=== PATIENT | female | born 1955 | race Caucasian/White ===

== ENCOUNTER 2024-06-26 07:58 | Outpatient (AMB) | payer BC, SELFPAY ==
--- NOTE | 2024-06-26 08:01 | MHC.OFFVIS ---
Intake Visit Reasons: nocturia Intake Note: New patient presents today for initial visit for Nocturia Urology Medication:none Blood Thinner:none Antibiotic Allergies:none PVR:0ml Allergies Sulfa (Sulfonamide Antibiotics) Allergy (Mild, Verified 06/26/24 08:06) Agitated codeine sulfate Allergy (Mild, Uncoded 06/19/24 14:51) Agitated latex gloves Allergy (Mild, Uncoded 06/19/24 14:51) Agitated pencillin v potassium Allergy (Mild, Uncoded 06/19/24 14:51) Agitated Medication List - Last Reconciled 06/26/24 by Blas Lala MD bupropion HCl 75 mg PO BID fluticasone propionate 50 mcg/actuation 1 spray intranasal DAILY meloxicam 15 mg PO DAILY mirabegron ER (Myrbetriq) 50 mg PO DAILY HPI Comments Details: 06/26/24--68-year-old female presenting with nocturia. She describes an onset of nearly a year, with symptoms escalating to voiding up to five times a night, impacting her sleep significantly. Despite this frequent urination, she does not return to sleep and feels exhausted throughout the daytime. She has chronic lower back pain. There is no notable history of urinary tract infections recently., While she has a strong family history of diabetes, she has not been treated for it. During daytime hours, she voids frequently. Her caffeine consumption remains moderate at an average of two servings a day, discussed bladder irritants including caffeine may exacerbate her urinary symptoms. I discussed overactive bladder contributing to the patient's nocturia. We reviewed the possible influence of age-related estrogen changes on bladder function, causing bladder spasms. I recommended reducing caffeine intake to see if it helps alleviate symptoms. We agreed to conduct further diagnostic imaging, including an ultrasound of the kidneys and bladder, to rule out structural concerns. I also explained the potential benefits of pharmacological intervention with Mirabegron to help with bladder relaxation. The patient showed understanding and interest in pursuing treatment through medication, appreciating the importance of assessing the ultrasound results to offer a comprehensive diagnosis. Urinary Symptoms Review - Nocturia several times per night, with frequency up to five times on some occasions - Onset of urinary symptoms about a year ago - Daytime frequency of urination noted, occurring four to five times - No history of recent urinary tract infections - No associated dysuria reported - Moderate caffeine intake, consuming one to three cups per day PFSH Medical History Nocturia Pain in right knee Primary insomnia Hyperlipidemia, unspecified Major depressive disorder, recurrent, moderate Type 2 diabetes mellitus without complications Review of Systems Const All systems reviewed & are unremarkable except as noted in HPI and below Reports no additional complaints Eyes Reports no additional complaints ENT Reports no additional complaints Card Reports no additional complaints Resp Reports no additional complaints GI Reports no additional complaints Reports as per HPI Musc Reports no additional complaints Skin/Breast Reports system reviewed and no additional complaints, except as documented Neuro Reports no additional complaints Psych Reports no additional complaints Endo Reports no additional complaints Veto/Lymph Reports no additional complaints Aller/Immun Reports no additional complaints Physical Exam Const General: cooperative, healthy appearing and no acute distress Orientation/consciousness: patient oriented x3 HEENT Head: Yes normal to inspection, Yes normocephalic and Yes atraumatic Eyes Conjunctivae: conjunctivae normal Neck Neck: Yes normal visual inspection and Yes trachea midline Chest Chest palpation & inspection: normal inspection of the chest Resp Effort & Inspection: normal respiratory effort GI Inspection: Yes normal to inspection Neuro General: patient oriented x3 Psych Appearance: grossly normal Results AMB Urinalysis, Automated UA Leukoctes 70 Leni/uL Last Edit by Felisha Bermudez on 06/26/24 12:12 UA Nitrite Negative Last Edit by Felisha Bermudez on 06/26/24 12:12 UA Urobilinogen 0.2 mg/dL Last Edit by Felisha Bermudez on 06/26/24 12:12 UA Protein 30 mg/dL Last Edit by Felisha Bermudez on 06/26/24 12:12 UA pH 6.0 Last Edit by Felisha Bermudez on 06/26/24 12:12 UA Blood 10 Jan/uL Last Edit by Felisha Bermudez on 06/26/24 12:12 UA Specific [place] 1.025 Last Edit by Felisha Bermudez on 06/26/24 12:12 UA Ketone Negative Last Edit by Felisha Bermudez on 06/26/24 12:12 UA Bilirubin 1 mg/dL Last Edit by Felisha Bermudez on 06/26/24 12:12 UA Glucose 0 mg/dL Last Edit by Felisha Bermudez on 06/26/24 12:12 Assessment & Plan Assessment & Plan (1) Nocturia more than twice per night: Code(s): R35.1 - Nocturia Category: Medical (2) Urinary frequency: Code(s): R35.0 - Frequency of micturition Category: Medical Plan Plan - Begin taking Mirabegron 50 mg in the evening. - Reduce caffeine intake to one serving daily. - Complete an ultrasound of the kidneys and bladder as scheduled by [facility]. - Provide a urine sample before leaving the office today. Orders: Orders US retroperitoneal comp Today R35.0 - Frequency of micturition, R35.1 - Nocturia Urine Culture Today R35.0 - Frequency of micturition AMB Urinalysis Automated Today Z13.9 - Encounter for screening, unspecified Medications: New meloxicam 15 mg PO DAILY 60 tabs 0RF bupropion HCl 75 mg PO BID 60 tabs 0RF fluticasone propionate 50 mcg/actuation administer into each nostril 1 spray intranasal DAILY 50 grams 0RF mirabegron ER (Myrbetriq) 50 mg PO DAILY 30 tabs 3RF Patient Instructions: The patient had an opportunity to ask questions regarding treatment plan. The patient expressed understanding and agreement with the above treatment plan. The patient is aware they should contact our office by phone for worsening of their current condition or the appearance of new symptoms. Compliance is encouraged with any medications and followup testing that is ordered. It is a privilege to be allowed the opportunity to participate in the urologic care of your patient. If you have any questions or concerns regarding treatment for the above conditions please do not hesitate to contact me. The office telephone contact is [phone]. This note is constructed in part using voice recognition software. While every effort has been made to ensure accuracy labor union business representative errors may have been included. Yours sincerely, Blas Lala MD Scribe Plan - Not visible on output: Patient was informed and verbally consented to the use of an ambient scribe for clinic note documentation during this visit. Coding Level of Care Code New Pt Level 4 (56282) Diagnoses Nocturia more than twice per night R35.1 Urinary frequency R35.0
--- OUTSIDE RECORDS SUMMARY | 2024-06-26 08:02 | XMS_ITS | Encounter Summary ---
Author Organization [facility] Address [address] [place] [address] Care Team Providers Care Marketing Production Manager Name Role Phone Jim Thomas Primary Care Provider Encounter Details Date Type Department Care Team (Late st Contact Info) Description 05/15/2024 Lab Requisition [facility] - Main Lab [address] [facility] [place] [phone] [address] Waterman [address] [place] [phone] Urinary tract infection, site not specified; Hematuria, unspecified Social History Tobacco Use Types Packs/Day Years Used Date Smoking Tobacco: Never Assessed Comments Unknown Sex and Gender Information Value Date Recorded Sex Assigned at Not on file Legal Sex Female 6:02 PM EST Gender Identity Not on file Sexual Orientation Not on file documented as of this encounter Plan of Treatment Not on file documented as of this encounter Procedures Procedure Name Priority Date/Time Associated Diagnosis Comments URINALYSIS WITH REFLEX MICROSCOPIC Routine 05/15/2024 3:00 PM EST Urinary tract infection, site not specified Hematuria, unspecified URINALYSIS WITH REFLEX MICROSCOPIC Routine 05/15/2024 3:00 PM EST Urinary tract infection, site not specified Hematuria, unspecified CULTURE URINE Routine 05/15/2024 3:00 PM EST Urinary tract infection, site not specified Hematuria, unspecified documented in this encounter Results * (ABNORMAL) Urinalysis with reflex microscopic (05/15/2024 3:00 PM EST) Specific [place] Urine 1.025 1.003 - 1.030 LAB URINALYSIS - AUTOMATED METHOD 05/15/2024 9:49 PM [facility] pH, Urine 6.0 5.0 - 8.0 pH LAB URINALYSIS - AUTOMATED METHOD 05/15/2024 9:49 PM [facility] Leukocytes, Urine Small(A) Negative LAB URINALYSIS - AUTOMATED METHOD 05/15/2024 9:49 PM [facility] Nitrite, Urine Negative Negative LAB URINALYSIS - AUTOMATED METHOD 05/15/2024 9:49 PM [facility] Protein, Urine Negative <=Trace mg/dL LAB URINALYSIS - AUTOMATED METHOD 05/15/2024 9:49 PM [facility] Glucose, Urine Negative Negative mg/dL LAB URINALYSIS - AUTOMATED METHOD 05/15/2024 9:49 PM [facility] Ketones, Urine Negative Negative mg/dL LAB URINALYSIS - AUTOMATED METHOD 05/15/2024 9:49 PM [facility] Urobilinogen , Urine 0.2 0.2 - 1.0 mg/dL LAB URINALYSIS - AUTOMATED METHOD 05/15/2024 9:49 PM [facility] Bilirubin, Urine Negative Negative LAB URINALYSIS - AUTOMATED METHOD 05/15/2024 9:49 PM [facility] Blood, Urine Negative Negative LAB URINALYSIS - AUTOMATED METHOD 05/15/2024 9:49 PM [facility] RBC, Urine 1 0 - 4 /HPF 05/15/2024 9:49 PM [facility] WBC, Urine 3 0 - 4 /HPF 05/15/2024 9:49 PM [facility] Squamous Epithelial, Urine 50 0 - 60 /LPF 05/15/2024 9:49 PM EST [facility] Non-Squamous Epithelial, Urine 2-5 Transitional epithelial cells. /LPF 05/15/2024 9:49 PM [facility] Crystals, Urine Moderate Amorphous Urate crystals. /LPF 05/15/2024 9:49 PM EST [facility] Bacteria, Urine Negative Negative /HPF 05/15/2024 9:49 PM [facility] Hyaline Casts, Urine 1 0 - 3 /LPF 05/15/2024 9:49 PM [facility] Mucus, Urine Trace(A) None /HPF 05/15/2024 9:49 PM [facility] Urine Urine specimen obtained by clean catch procedure / Unknown 05/15/2024 3:00 PM EST 05/15/2024 7:24 PM EST Narrative [facility] - 05/15/2024 9:49 PM EST QNS to spin,urine sediment done on un-spun urine. [employer] LAB URINE ORDERABLES Final Resul t [facility] [address] [place] [address], [place] [phone] * Culture urine (05/15/2024 3:00 PM EST) Culture, Urine 10,000-49,000 CFU/mL Mixed urogenital esther, no uropathogens present. Suggest repeat specimen if clinically indicated. 05/16/2024 2:30 PM EST [facility] Urine Urine specimen obtained by clean catch procedure / Unknown 05/15/2024 3:00 PM EST 05/15/2024 7:24 PM EST [id number] LAB MICROBIOLOGY - GENERAL ORDER JENNIFER Final Result [facility] [address] [place] [address], documented in this encounter Visit Diagnoses Diagnosis Urinary tract infection, site not specified Hematuria, unspecified documented in this encounter Care Teams Marketing Production Manager Relationship Specialty Start Date End Date Jim Thomas DO [address] [place] [phone] PCP - General Internal Medicine 02/23/24 documented as of this encounter
--- OUTSIDE RECORDS SUMMARY | 2024-06-26 08:02 | XMS_ITS | Clinical Summary ---
Author Organization [facility] Address [address] [place] [address] Phone Care Team Providers Care Round Kiln Drawer Name Role Phone Gab Guerra DO Primary Care Provider [phone] Encounters Date Type Department Care Team Description 05/15/2024 Lab Requisition [facility] - Main Lab [address] [facility] [place] [address] Ed Waterman Urinary tract infection, site not specified; Hematuria, unspecified from Last 3 Months Social History Tobacco Use Types Packs/Day Years Used Date Smoking Tobacco: Never Assessed Comments Unknown Sex and Gender Information Value Date Recorded Sex Assigned at Not on file Legal Sex Female 6:02 PM EST Gender Identity Not on file Sexual Orientation Not on file Plan of Treatment Health Maintenance Due Date Last Done Comments DTaP,Tdap,and Td Vaccines (1 - Tdap) 1974 Pneumococcal Vaccine: 50+ Years (1 of 1 - PCV) 10/05/2003 Colorectal Cancer Screening: Colonoscopy 02/24/2022 Depression Screening 02/24/2022 Falls Risk Assessment 02/24/2022 Hepatitis C Screening 02/24/2022 Medicare Annual Wellness Visit 02/24/2022 Social Influencers of Health Screening 02/24/2022 Breast Cancer Screening 08/14/2025 08/15/19 24, 08/03/2022, 07/15/2021, Additional history exists Cholesterol Screening (Lipid Panel) 05/07/2029 05/07/2024 Osteoporosis Screening (Bone Density Screening) 03/23/2034 03/23/2024, 04/13/2018 Zoster Vaccines Completed 08/15/2020, 02/23/2020 RSV Immunization Adult Patients Completed 03/31/2023 Influenza Vaccine Completed 11/03/2023, , 02/22/2022, Additional history exists COVID-19 Vaccine Completed 11/25/2023, , 01/07/2022, Additional history exists HIB Vaccines Aged Out No longer eligi ble based on patient's age to complete this topic HPV Vaccines Aged Out No longer eligi ble based on patient's age to complete this topic Hepatitis A Vaccines Aged Out No long er eligible based on patient's age to complete this topic Hepatitis B Vaccines Aged Out No long er eligible based on patient's age to complete this topic IPV Vaccines Aged Out No longer eligi ble based on patient's age to complete this topic MMR Vaccines Aged Out No longer eligi ble based on patient's age to complete this topic Meningococcal ACWY Vaccine Aged Out N o longer eligible based on patient's age to complete this topic Meningococcal B Vaccine Aged Out No l onger eligible based on patient's age to complete this topic RSV Immunization Patients Under 20 months Aged Out No longer eligible based on patient's age to complete this topic Varicella Vaccines Aged Out No longer eligible based on patient's age to complete this topic Procedures Procedure Name Priority Date/Time Associated Diagnosis Comments URINALYSIS WITH REFLEX MICROSCOPIC Routine 05/15/2024 3:00 PM EST Urinary tract infection, site not specified Hematuria, unspecified URINALYSIS WITH REFLEX MICROSCOPIC Routine 05/15/2024 3:00 PM EST Urinary tract infection, site not specified Hematuria, unspecified CULTURE URINE Routine 05/15/2024 3:00 PM EST Urinary tract infection, site not specified Hematuria, unspecified URINALYSIS WITH REFLEX MICROSCOPIC Routine 05/07/2024 9:03 AM EST Macrocytosis HLD (hyperlipidemia) IGT (impaired glucose tolerance) Nocturia FOLATE Routine 05/07/2024 9:03 AM EST Macrocytosis HLD (hyperlipidemia) IGT (impaired glucose tolerance) Nocturia VITAMIN B12 Routine 05/07/2024 9:03 AM EST Macrocytosis HLD (hyperlipidemia) IGT (impaired glucose tolerance) Nocturia URINALYSIS WITH REFLEX MICROSCOPIC Routine 05/07/2024 9:03 AM EST Macrocytosis HLD (hyperlipidemia) IGT (impaired glucose tolerance) Nocturia LIPID PANEL WITH REFLEX TO DIRECT LDL Routine 05/07/2024 9:03 AM EST Macrocytosis HLD (hyperlipidemia) IGT (impaired glucose tolerance) Nocturia CULTURE URINE Routine 05/07/2024 9:03 AM EST Macrocytosis HLD (hyperlipidemia) IGT (impaired glucose tolerance) Nocturia BD BONE DENSITY DXA AXIAL SKELETON Routine 03/23/2024 8:21 AM EST Post-menopausal QUYEN SCREENING DIGITAL Routine 08/15/2023 8:44 AM EDT Encounter for screening mammogram for malignant neoplasm of breast from Last 3 Months or Most Recently Relevant to Health Maintenance Results * (ABNORMAL) Urinalysis with reflex microscopic (05/15/2024 3:00 PM EST) Only the most recent of2 resultswithin the time period is included. Specific [place] Urine 1.025 1.003 - 1.030 LAB URINALYSIS - AUTOMATED METHOD 05/15/2024 9:49 PM [facility] pH, Urine 6.0 5.0 - 8.0 pH LAB URINALYSIS - AUTOMATED METHOD 05/15/2024 9:49 PM [facility] Leukocytes, Urine Small(A) Negative LAB URINALYSIS - AUTOMATED METHOD 05/15/2024 9:49 PM [facility] Nitrite, Urine Negative Negative LAB URINALYSIS - AUTOMATED METHOD 05/15/2024 9:49 PM [facility] Protein, Urine Negative <=Trace mg/dL LAB URINALYSIS - AUTOMATED METHOD 05/15/2024 9:49 PM [facility] Glucose, Urine Negative Negative mg/dL LAB URINALYSIS - AUTOMATED METHOD 05/15/2024 9:49 PM [facility] Ketones, Urine Negative Negative mg/dL LAB URINALYSIS - AUTOMATED METHOD 05/15/2024 9:49 PM [facility] Urobilinogen , Urine 0.2 0.2 - 1.0 mg/dL LAB URINALYSIS - AUTOMATED METHOD 05/15/2024 9:49 PM [facility] Bilirubin, Urine Negative Negative LAB URINALYSIS - AUTOMATED METHOD 05/15/2024 9:49 PM [facility] Blood, Urine Negative Negative LAB URINALYSIS - AUTOMATED METHOD 05/15/2024 9:49 PM [facility] RBC, Urine 1 0 - 4 /HPF 05/15/2024 9:49 PM [facility] WBC, Urine 3 0 - 4 /HPF 05/15/2024 9:49 PM [facility] Squamous Epithelial, Urine 50 0 - 60 /LPF 05/15/2024 9:49 PM [facility] Non-Squamous Epithelial, Urine 2-5 Transitional epithelial cells. /LPF 05/15/2024 9:49 PM [facility] Crystals, Urine Moderate Amorphous Urate crystals. /LPF 05/15/2024 9:49 PM [facility] Bacteria, Urine Negative Negative /HPF 05/15/2024 9:49 PM [facility] Hyaline Casts, Urine 1 0 - 3 /LPF 05/15/2024 9:49 PM [facility] Mucus, Urine Trace(A) None /HPF 05/15/2024 9:49 PM [facility] Urine Urine specimen obtained by clean catch procedure / Unknown 05/15/2024 3:00 PM EST 05/15/2024 7:24 PM EST Narrative [facility] - 05/15/2024 9:49 PM EST QNS to spin,urine sediment done on un-spun urine. Ed [facility] LAB URINE ORDERABLES Final Resul t Performing Organization Address [facility]/ZIP Co de Phone Number [facility] [address] [place] [address], [place] [phone] * Culture urine (05/15/2024 3:00 PM EST) Only the most recent of2 resultswithin the time period is included. Pathologist [facility] Culture, Urine 10,000-49,000 CFU/mL Mixed urogenital esther, no uropathogens present. Suggest repeat specimen if clinically indicated. 05/16/2024 2:30 PM EST [facility] Urine Urine specimen obtained by clean catch procedure / Unknown 05/15/2024 3:00 PM EST 05/15/2024 7:24 PM EST [facility] LAB MICROBIOLOGY - GENERAL ORDER JENNIFER Final Result Performing Organization Address [facility] Co de Phone Number [facility] [address] [place] [address], [place] [phone] * (ABNORMAL) Lipid panel with reflex to direct LDL (05/07/2024 9:03 AM EST) Cholesterol 185 0 - 200 mg/dL LAB CHEMISTRY METHOD 05/07/2024 11:40 AM EST [facility] Triglycerides 90 0 - 150 mg/dL LAB CHEMISTRY METHOD 05/07/2024 11:40 AM [facility] HDL 49 >=40 mg/dL LAB CHEMISTRY METHOD 05/07/2024 11:40 AM [facility] LDL Calculated 118(H) 0 - 100 mg/dL LAB CHEMISTRY METHOD 05/07/2024 11:40 AM EST [facility] VLDL Cholesterol [place] 18 mg/dL LAB CHEMISTRY METHOD 05/07/2024 11:40 AM EST [facility] Non HDL Chol. (LDL+VLDL) 136 <145 mg/dL LAB CHEMISTRY METHOD 05/07/2024 11:40 AM EST [facility] Chol/HDL Ratio 3.8 0.0 - 4.4 LAB CHEMISTRY METHOD 05/07/2024 11:40 AM EST [facility] Blood Venous blood specimen / Unknown Venipuncture / Unknown 05/07/2024 9:03 AM EST 05/07/2024 9:03 AM EST Ed Waterman LAB BLOOD ORDERABLES Final Resul t Performing Organization Address City/[facility]/ZIP Co de Phone Number [facility] [address] [place] [address], * (ABNORMAL) Folate (05/07/2024 9:03 AM EST) Folate >20.0(H) 2.8 - 17.0 ng/ml LAB CHEMISTRY METHOD 05/07/2024 11:40 AM EST [facility] Blood Venous blood specimen / Unknown Venipuncture / Unknown 05/07/2024 9:03 AM EST 05/07/2024 9:03 AM EST Ed Waterman LAB BLOOD ORDERABLES Final Resul t [facility] [address] [place] [address], [place] [phone] * Vitamin B12 (05/07/2024 9:03 AM EST) Vitamin B-12 461 250 - 900 pcg/mL LAB CHEMISTRY METHOD 05/07/2024 11:40 AM EST [facility] Blood Venous blood specimen / Unknown Venipuncture / Unknown 05/07/2024 9:03 AM EST 05/07/2024 9:03 AM EST Ed Waterman LAB BLOOD ORDERABLES Final Resul t [facility] [address] [place] [address], [place] [phone] * BD Bone Density DXA Axial Skeleton (03/23/2024 8:21 AM EST) Anatomical Region Laterality Modality Wrist, Hip, L-spine Bone Densito metry 03/23/2024 8:48 AM EST Impressions 03/23/2024 8:53 AM EST 1. Osteopenia. ??There has been an increase of 3.1% in bone mineral density in the lumbar spine since the prior examination of 04/13/2018. ??There has been a decrease of 1.8% in bone mineral density in the right femur and a decrease of 0.8% in bone mineral density in the left femur. 2. FRAX analysis yields a 10-year probability of major osteoporotic fracture of 8.7% and a 10-year probability of hip fracture of 1.1%. Code 74186 -------- FINAL REPORT -------- Dictated By: Juan Eldridge Dictated Date: 03/23/2024 08:48 ET Assigned Physician: Juan Eldridge Reviewed and Electronically Signed By: Juan Eldridge Signed Date: 03/23/2024 08:53 ET Workstation ID: [id number] Transcribed By: Self Edit Transcribed Date: 03/23/2024 08:48 ET Narrative 03/23/2024 8:53 AM EST HISTORY: ??The patient is a 68-year-old postmenopausal female with clinical concern for metabolic bone disease. FINDINGS: ??Dual energy x-ray absorptiometry of the lumbar spine and femurs is performed. The mean bone mineral density at L1-L4 (with the exclusion of L2) is 1.150 gm/cm2 which is 98% of that of young normals and 109% of that of age matched controls. This yields a T-score of -0.2 and a Z-score of 0.8 and there is therefore no evidence of osteoporosis or osteopenia here. The mean bone mineral density of the femurs bilaterally is 0.916 gm/cm2 which is 91% of that of young normals and 104% of that of age matched controls. ??This yields a T-score of -0.7 and a Z-score of 0.3 and there is therefore no evidence of osteoporosis or osteopenia here. ??However, the T-score of left femoral neck is -1.4 which is diagnostic of osteopenia. Procedure Note Juan Eldridge MD - 03/23/2024 HISTORY: The patient is a 68-year-old postmenopausal female with clinicalconcern for metabolic bone disease. FINDINGS: Dual energy x-ray absorptiometry of the lumbar spine and femursis performed. The mean bone mineral density at L1-L4 (with the exclusionof L2) is 1.150 gm/cm2 which is 98% of that of young normals and 109% ofthat of age matched controls. This yields a T-score of -0.2 and a Z-scoreof 0.8 and there is therefore no evidence of osteoporosis or osteopeniahere. The mean bone mineral density of the femurs bilaterally is 0.916 gm/kg9hbfoc is 91% of that of young normals and 104% of that of age matchedcontrols. This yields a T-score of -0.7 and a Z-score of 0.3 and there istherefore no evidence of osteoporosis or osteopenia here. However, theT-score of left femoral neck is - 1.4 which is diagnostic of osteopenia. IMPRESSION: 1. Osteopenia. There has been an increase of 3.1% in bone mineral densityin the lumbar spine since the prior examination of 04/13/2018. There hasbeen a decrease of 1.8% in bone mineral density in the right femur and adecrease of 0.8% in bone mineral density in the left femur. 2. FRAX analysis yields a 10-year probability of major osteoporoticfracture of 8.7% and a 10-year probability of hip fracture of 1.1%. Code 49685 -------- FINAL REPORT -------- Dictated By: Juan Eldridge Dictated Date: 03/23/2024 08:48 ET Assigned Physician: Juan Eldridge Reviewed and Electronically Signed By: Juan Eldridge Signed Date: 03/23/2024 08:53 ET Workstation ID: [id number] Transcribed By: Self Edit Transcribed Date: 03/23/2024 08:48 ET us Gab Guerra DO IMG DXA PROCEDURES Final Resu lt * QUYEN SCREENING DIGITAL (08/15/2023 8:44 AM EDT) Anatomical Region Laterality Modality Mammography 08/15/2023 7:11 AM EDT Narrative 08/15/2023 8:44 AM EDT [facility] Diagnostic Imaging Department [address] [place], [place] [id number] Patient: ??ANN ALCARAZ ?/Age/Sex: 1955 - 67 - Unit#: ??[id number] ? Location/Status: ??SPDIMAM/REG CLI ? Mnemonic/Ordering Site: ??DIGSC/SPMAM Ordering Physician: ??GAB GUERRA MD [facility] Screening Digital - 08/15/23724 Report Status:Signed EXAM: [facility] Screening Digital EXAM DATE AND TIME: 08/15/2023 7:25 AM HISTORY: ??Annual screening COMPARISON: ??Multiple exams dating back to 2019 TECHNIQUE: Bilateral digital breast tomosynthesis was performed in the CC and MLO projections. Computer aided detection with fitaborateD [employer] 3D 3.1 was employed. TISSUE DENSITY: b. There are scattered areas of fibroglandular density. FINDINGS: No suspicious masses, grouped microcalcifications, or areas of architectural distortion are seen. The skin and vascularity are unremarkable. IMPRESSION: Stable mammographic appearance of the breasts. ??No evidence of malignancy is seen. A negative mammogram in the presence of a clinically suspicious palpable abnormality does not preclude the possibility of malignancy or alter the indications for biopsy. BI-RADS: ??Category 1: Negative RECOMMENDATION(S): 1: Routine screening mammogram BILATERAL in 1 year. 3341F, 7090F Dictating Physician: ??ALBERTO GRIFFIN MD Electronically Signed by: ??ALBERTO GRIFFIN MD Dic Date/Time: ??08/15/23842 Sign date/Time: ??08/15/23 0844 Procedure Note Alberto Griffin MD - 12/28/2023 [facility] Diagnostic Imaging Department [address] [place] [address] Patient: ANN ALCARAZO.B./Age/Sex: 1955 - 67 - F Unit#: [id number] Location/Status: [facility]/REG CLI Mnemonic/Ordering Site: [facility] Ordering Physician: GAB GUERRA MD [facility] Screening Digital - 08/15/23724 Report Status:Signed EXAM: [facility] Screening Digital EXAM DATE AND TIME: 08/15/2023 7:25 AM HISTORY: Annual screening COMPARISON: Multiple exams dating back to 2019 TECHNIQUE: Bilateral digital breast tomosynthesis was performed in the CCand MLO projections. Computer aided detection with [employer] 3D 3.1was employed. TISSUE DENSITY: b. There are scattered areas of fibroglandular density. FINDINGS: No suspicious masses, grouped microcalcifications, or areas ofarchitectural distortion are seen. The skin and vascularity are unremarkable. IMPRESSION: Stable mammographic appearance of the breasts. No evidence of malignancyis seen. A negative mammogram in the presence of a clinically suspicious palpable abnormality does not preclude the possibility of malignancy or alter the indications for biopsy. BI-RADS: Category 1: Negative RECOMMENDATION(S): 1: Routine screening mammogram BILATERAL in 1 year. 3341F, 7057F Dictating Physician: ALBERTO GRIFFIN MD Electronically Signed by: ALBERTO GRIFFIN MD Dic Date/Time: 08/15/2343 Sign date/Time: 08/15/23843 Gab Guerra DO IM BI PROCEDURES Final Resul t from Last 3 Months or Most Recently Relevant to Health Maintenance Insurance [employer] [place] MEDICARE ADVANTAGE Care Teams Round Kiln Drawer Relationship Specialty Start Date End Date Gab Guerra DO [address] [place] [phone] PCP - General Internal Medicine 02/23/24
== END 2024-06-26 08:48 | disposition home or self-care (01) ==
LOC: HO.HUSH 07:58
PROVIDERS: PCP Internal Medicine; Visit Provider Urology
DX: Z13.9 Encounter for screening, unspecified (principal)

== ENCOUNTER 2024-06-26 07:58 | Outpatient (REF) | payer BC, SELFPAY ==
--- OUTSIDE RECORDS SUMMARY | 2024-06-26 12:08 | XMS_ITS | Encounter Summary ---
Author Organization [facility] Address [address] [place] [address] Care Team Providers Care Driver Trainer Name Role Phone Jim Thomas Primary Care Provider [phone] Encounter Details Date Type Department Care Team (Late st Contact Info) Description 05/15/2024 Lab Requisition [facility] - Main Lab [address] [facility] [place] [phone] Ed Waterman [address] [place] [phone] Urinary tract infection, site not specified; [...] reflex microscopic (05/15/2024 3:00 PM EST) Specific [place] Urine 1.025 1.003 - 1.030 LAB URINALYSIS [...] - 60 /LPF 05/15/2024 9:49 PM EST [facility] Non-Squamous Epithelial, Urine 2-5 Transitional epithelial cells. /LPF 05/15/2024 9:49 PM [facility] Crystals, Urine Moderate Amorphous Urate crystals. /LPF 05/15/2024 9:49 PM EST [facility] Bacteria, Urine Negative Negative /HPF 05/15/2024 9:49 PM [facility] Hyaline Casts, Urine 1 0 - 3 /LPF 05/15/2024 9:49 PM [facility] Mucus, Urine Trace(A) None /HPF 05/15/2024 9:49 PM [facility] Urine Urine specimen obtained by clean catch procedure / Unknown 05/15/2024 3:00 PM EST 05/15/2024 7:24 PM EST Narrative [facility] - 05/15/2024 9:49 PM EST QNS to spin,urine sediment done on un-spun urine. [facility] LAB URINE ORDERABLES Final Resul t [facility] [address] [place] [address], [place] [phone] * Culture urine (05/15/2024 3:00 PM EST) Culture, Urine 10,000-49,000 CFU/mL Mixed urogenital esther, no uropathogens present. Suggest repeat specimen if clinically indicated. 05/16/2024 2:30 PM EST [facility] Urine Urine specimen obtained by clean catch procedure / Unknown 05/15/2024 3:00 PM EST 05/15/2024 7:24 PM EST [email or web address] LAB MICROBIOLOGY - GENERAL ORDER JENNIFER Final Result [facility] [address] [place] [address], documented in this encounter Visit Diagnoses Diagnosis Urinary tract infection, site not specified Hematuria, unspecified documented in this encounter Care Teams Driver Trainer Relationship Specialty Start Date End Date Jim Thomas DO [address] [place] [phone] PCP - General Internal Medicine 02/23/24 documented as of this encounter
--- OUTSIDE RECORDS SUMMARY | 2024-06-26 12:08 | XMS_ITS | Clinical Summary ---
Author Organization [facility] Address [address] [place] [address] Phone Care Team Providers Care Machine Leather Trimmer Name Role Phone Gab Guerra DO Primary Care Provider [phone] Encounters Date Type Department Care Team Description 05/15/2024 Lab Requisition [facility] - Main Lab [address] [facility] [place] [address] Ed Waterman Urinary tract infection, [...] resultswithin the time period is included. Specific [place] Urine 1.025 1.003 - 1.030 LAB URINALYSIS - AUTOMATED METHOD 05/15/2024 9:49 PM [facility] pH, Urine 6.0 5.0 - 8.0 pH LAB URINALYSIS - AUTOMATED METHOD 05/15/2024 9:49 PM [facility] Leukocytes, Urine Small(A) Negative LAB URINALYSIS - AUTOMATED METHOD 05/15/2024 9:49 PM [facility] Nitrite, Urine Negative Negative LAB URINALYSIS - AUTOMATED METHOD 05/15/2024 9:49 PM [facility] Protein, Urine Negative <=Trace mg/dL LAB URINALYSIS - AUTOMATED METHOD 05/15/2024 9:49 PM [facility] Glucose, Urine Negative Negative mg/dL LAB URINALYSIS - AUTOMATED METHOD 05/15/2024 9:49 PM [facility] Ketones, Urine Negative Negative mg/dL LAB URINALYSIS - AUTOMATED METHOD 05/15/2024 9:49 PM [facility] Urobilinogen , Urine 0.2 0.2 - 1.0 mg/dL LAB URINALYSIS - AUTOMATED METHOD 05/15/2024 9:49 PM [facility] Bilirubin, Urine Negative Negative LAB URINALYSIS - AUTOMATED METHOD 05/15/2024 9:49 PM [facility] Blood, Urine Negative Negative LAB URINALYSIS - AUTOMATED METHOD 05/15/2024 9:49 PM [facility] RBC, Urine 1 0 - 4 /HPF 05/15/2024 9:49 PM [facility] WBC, Urine 3 0 - 4 /HPF 05/15/2024 9:49 PM [facility] Squamous Epithelial, Urine 50 0 - 60 /LPF 05/15/2024 9:49 PM [facility] Non-Squamous Epithelial, Urine 2-5 Transitional epithelial cells. /LPF 05/15/2024 9:49 PM [facility] Crystals, Urine Moderate Amorphous Urate crystals. /LPF 05/15/2024 9:49 PM [facility] Bacteria, Urine Negative Negative /HPF 05/15/2024 9:49 PM [facility] Hyaline Casts, Urine 1 0 - 3 /LPF 05/15/2024 9:49 PM [facility] Mucus, Urine Trace(A) None /HPF 05/15/2024 9:49 PM [facility] Urine Urine specimen obtained by clean catch procedure / Unknown 05/15/2024 3:00 PM EST 05/15/2024 7:24 PM EST Narrative [facility] - 05/15/2024 9:49 PM EST QNS to spin,urine sediment done on un-spun urine. Ed [facility] LAB URINE ORDERABLES Final Resul t Performing Organization Address [facility]/ZIP Co de Phone Number [facility] [address] [place] [address], [place] [phone] * Culture urine (05/15/2024 3:00 PM EST) Only the most recent of2 resultswithin the time period is included. Pathologist [facility] Culture, Urine 10,000-49,000 CFU/mL Mixed urogenital esther, no uropathogens present. Suggest repeat specimen if clinically indicated. 05/16/2024 2:30 PM EST [facility] Urine Urine specimen obtained by clean catch procedure / Unknown 05/15/2024 3:00 PM EST 05/15/2024 7:24 PM EST [facility] LAB MICROBIOLOGY - GENERAL ORDER JENNIFER Final Result Performing Organization Address [facility] Co de Phone Number [facility] [address] [place] [address], [place] [phone] * (ABNORMAL) Lipid panel with reflex to direct LDL (05/07/2024 9:03 AM EST) Cholesterol 185 0 - 200 mg/dL LAB CHEMISTRY METHOD 05/07/2024 11:40 AM EST [facility] Triglycerides 90 0 - 150 mg/dL LAB CHEMISTRY METHOD 05/07/2024 11:40 AM [facility] HDL 49 >=40 mg/dL LAB CHEMISTRY METHOD 05/07/2024 11:40 AM [facility] LDL Calculated 118(H) 0 - 100 mg/dL LAB CHEMISTRY METHOD 05/07/2024 11:40 AM EST [facility] VLDL Cholesterol [place] 18 mg/dL LAB CHEMISTRY METHOD 05/07/2024 11:40 AM EST [facility] Non HDL Chol. (LDL+VLDL) 136 <145 mg/dL LAB CHEMISTRY METHOD 05/07/2024 11:40 AM EST [facility] Chol/HDL Ratio 3.8 0.0 - 4.4 LAB CHEMISTRY METHOD 05/07/2024 11:40 AM EST [facility] Blood Venous blood specimen / Unknown Venipuncture / Unknown 05/07/2024 9:03 AM EST 05/07/2024 9:03 AM EST Ed Waterman LAB BLOOD ORDERABLES Final Resul t Performing Organization Address [facility]/ZIP Co de Phone Number [facility] [address] [place] [address], * (ABNORMAL) Folate (05/07/2024 9:03 AM EST) Folate >20.0(H) 2.8 - 17.0 ng/ml LAB CHEMISTRY METHOD 05/07/2024 11:40 AM EST [facility] Blood Venous blood specimen / Unknown Venipuncture / Unknown 05/07/2024 9:03 AM EST 05/07/2024 9:03 AM EST Ed Waterman LAB BLOOD ORDERABLES Final Resul t [facility] [address] [place] [address], [place] [phone] * Vitamin B12 (05/07/2024 9:03 AM EST) Vitamin B-12 461 250 - 900 pcg/mL LAB CHEMISTRY METHOD 05/07/2024 11:40 AM EST [facility] Blood Venous blood specimen / Unknown Venipuncture / Unknown 05/07/2024 9:03 AM EST 05/07/2024 9:03 AM EST Ed Waterman LAB BLOOD ORDERABLES Final Resul t [facility] [address] [place] [address], [place] [phone] * BD Bone Density DXA Axial Skeleton [...] probability of hip fracture of 1.1%. Code 42299 -------- FINAL REPORT -------- Dictated By: Juan Eldridge Dictated Date: 03/23/2024 08:48 ET Assigned Physician: Juan Eldridge Reviewed and Electronically Signed By: Juan Eldridge Signed Date: 03/23/2024 08:53 ET Workstation ID: [id number] Transcribed By: Self Edit Transcribed Date: 03/23/2024 [...] density of the femurs bilaterally is 0.916 gm/ih8ndtbz is 91% of that of young normals [...] probability of hip fracture of 1.1%. Code 57759 -------- FINAL REPORT -------- Dictated By: Juan Eldridge Dictated Date: 03/23/2024 08:48 ET Assigned Physician: Juan Eldridge Reviewed and Electronically Signed By: Juna Eldridge Signed Date: 03/23/2024 08:53 ET Workstation ID: [id number] Transcribed By: Self Edit Transcribed Date: 03/23/2024 08:48 ET us Gab Guerra DO IMG DXA PROCEDURES Final Resu lt * QUYEN SCREENING DIGITAL (08/15/2023 8:44 AM EDT) Anatomical Region Laterality Modality Mammography 08/15/2023 7:11 AM EDT Narrative 08/15/2023 8:44 AM EDT [facility] Diagnostic Imaging Department [address] [place], [place] [id number] Patient: ??ANN ALCARAZ ?/Age/Sex: 1955 - 67 - Unit#: ??[id number] ? Location/Status: ??SPDIMAM/REG CLI ? Mnemonic/Ordering Site: ??DIGSC/SPMAM Ordering Physician: ??GAB GUERRA MD Quyen Screening Digital - 08/15/23724 Report Status:Signed EXAM: Quyen Screening Digital EXAM DATE AND TIME: 08/15/2023 7:25 AM HISTORY: ??Annual screening COMPARISON: ??Multiple exams dating back to 2019 TECHNIQUE: Bilateral digital breast tomosynthesis was performed in the CC and MLO projections. Computer aided detection with [employer] Kvantum 3D 3.1 was employed. TISSUE DENSITY: b. [...] screening mammogram BILATERAL in 1 year. 3341F, 7015F Dictating Physician: ??ALBERTO GRIFFIN MD Electronically Signed by: ??ALBERTO GRIFFIN MD Dic Date/Time: ??08/15/23842 Sign date/Time: ??08/15/23 0844 Procedure Note Alberto Griffin MD - 12/28/2023 [facility] Diagnostic Imaging Department [address] [place] [address] Patient: ANN ALCARAZO.B./Age/Sex: 1955 - 67 - F Unit#: [id number] Location/Status: [facility]/REG CLI Mnemonic/Ordering Site: [facility] Ordering Physician: GAB GUERRA MD [facility] Screening Digital - 08/15/23724 Report Status:Signed EXAM: [facility] Screening Digital EXAM DATE AND TIME: 08/15/2023 7:25 AM HISTORY: Annual screening COMPARISON: Multiple exams dating back to 2019 TECHNIQUE: Bilateral digital breast tomosynthesis was performed in the CCand MLO projections. Computer aided detection with [employer] Kvantum 3D 3.1was employed. TISSUE DENSITY: b. There [...] screening mammogram BILATERAL in 1 year. 3341F, 7030F Dictating Physician: ALBERTO GRIFFIN MD Electronically Signed by: ALBERTO GRIFFIN MD Dic Date/Time: 08/15/2343 Sign date/Time: 08/15/23843 Gab Guerra DO IM BI PROCEDURES Final Resul t from Last 3 Months or Most Recently Relevant to Health Maintenance Insurance [employer] - [place] MEDICARE ADVANTAGE Care Teams Machine Leather Trimmer Relationship Specialty Start Date End Date Gab Guerra DO [address] [place] [phone] PCP - General Internal Medicine 02/23/24
== END 2024-06-26 07:59 | disposition home or self-care (01) ==
LOC: HO.LNP 07:58
PROVIDERS: PCP Internal Medicine; Visit Provider Urology
DX: R35.0 Frequency of micturition (principal)
CPT/HCPCS: 81003; 87086

== ENCOUNTER 2024-08-21 11:30 | Outpatient (REF) | payer MEDICARE, SELFPAY ==
--- NOTE | ~2024-08-21 | US_ITS ---
CLINICAL HISTORY: R35.0 - Frequency of micturition US Renal Comparison: None Findings: Right kidney normal size and echotexture, 9.7 cm length. Left kidney normal size and echotexture, 9.9 cm length. No collecting system dilatation of either kidney. Normal color Doppler. Urinary bladder is unremarkable. Prevoid volume 448 mL. Postvoid volume 0 mL. Bilateral ureteral jets are visualized. IMPRESSION: 1. Normal kidneys. This document has been electronically signed by: Luis Eduardo Grey MD on 08/21/2024 16:43:04
--- OUTSIDE RECORDS SUMMARY | 2024-08-21 13:50 | XMS_ITS | Clinical Summary ---
Author Organization [facility] Address [address] [place] [address] Phone Care Team Providers Care Application Development Team Lead Name Role Phone Jim Guerra Primary Care Provider [phone] Social History Tobacco Use Types Packs/Day Years [...] 02/24/2022 Social Influencers of Health Screening 02/24/2022 COVID-19 Vaccine ( season) 2024 11/25/2023, 12/08/2022, 01/07/2022, Additional history exists Breast Cancer Screening 08/14/2025 08/15/19, 08/03/2022, 07/15/2021, Additional history exists Cholesterol Screening (Lipid Panel) 05/07/2029 05/07/2024 Osteoporosis Screening (Bone Density Screening) 03/23/2034 03/23/2024, 04/13/2018 Zoster Vaccines Completed 08/15/2020, 02/23/2020 RSV Immunization Adult Patients Completed 03/31/2023 Influenza Vaccine Completed 11/03/2023, , 02/22/2022, Additional history exists HIB Vaccines Aged Out [...] Procedure Name Priority Date/Time Associated Diagnosis Comments LIPID PANEL WITH REFLEX TO DIRECT LDL Routine 05/07/2024 9:03 AM EST Macrocytosis HLD (hyperlipidemia) IGT (impaired glucose tolerance) Nocturia BD BONE DENSITY DXA AXIAL SKELETON Routine 03/23/2024 8:21 AM EST Post-menopausal TARIQ SCREENING DIGITAL Routine 08/15/2023 8:44 AM EDT Encounter for screening mammogram for malignant neoplasm of breast from Last 3 Months or Most Recently Relevant to Health Maintenance Results * (ABNORMAL) Lipid panel with reflex to direct LDL (05/07/2024 9:03 AM EST) Cholesterol 185 0 - 200 mg/dL LAB CHEMISTRY METHOD 05/07/2024 11:40 AM EST [facility] Triglycerides 90 0 - 150 mg/dL LAB CHEMISTRY METHOD 05/07/2024 11:40 AM EST [facility] HDL 49 >=40 mg/dL LAB CHEMISTRY METHOD 05/07/2024 11:40 AM EST [facility] LDL Calculated 118(H) 0 - 100 mg/dL LAB CHEMISTRY METHOD 05/07/2024 11:40 AM EST [facility] VLDL Cholesterol [place] 18 mg/dL LAB CHEMISTRY METHOD 05/07/2024 11:40 AM EST [facility] Non HDL Chol. (LDL+VLDL) 136 <145 mg/dL LAB CHEMISTRY METHOD 05/07/2024 11:40 AM EST [facility] Chol/HDL Ratio 3.8 0.0 - 4.4 LAB CHEMISTRY METHOD 05/07/2024 11:40 AM EST [facility] Blood Venous blood specimen / Unknown Venipuncture / Unknown 05/07/2024 9:03 AM EST 05/07/2024 9:03 AM EST Ed Waterman LAB BLOOD ORDERABLES Final Resul t [facility] [address] [place] [address], * BD Bone Density DXA Axial Skeleton [...] probability of hip fracture of 1.1%. Code 07396 -------- FINAL REPORT -------- Dictated By: Juan Eldridge Dictated Date: 03/23/2024 08:48 ET Assigned Physician: Juan Eldridge Reviewed and Electronically Signed By: Juan Eldridge Signed Date: 03/23/2024 08:53 ET Workstation ID: [id number] Transcribed By: Self Edit Transcribed Date: 03/23/2024 [...] density of the femurs bilaterally is 0.916 gm/sp9urswg is 91% of that of young normals [...] probability of hip fracture of 1.1%. Code 15077 -------- FINAL REPORT -------- Dictated By: Juan Eldridge Dictated Date: 03/23/2024 08:48 ET Assigned Physician: Juan Eldridge Reviewed and Electronically Signed By: Juan Eldridge Signed Date: 03/23/2024 08:53 ET Workstation ID: [id number] Transcribed By: Self Edit Transcribed Date: 03/23/2024 08:48 ET us Jim Guerra DO IMG DXA PROCEDURES Final Resu lt * TARIQ SCREENING DIGITAL (08/15/2023 8:44 AM EDT) Anatomical Region Laterality Modality Mammography 08/15/2023 7:11 AM EDT Narrative 08/15/2023 8:44 AM EDT [facility] Diagnostic Imaging Department [address] [place] [address] Patient: ??ANN ALCARAZ ?/Age/Sex: 1955 - 67 - Unit#: ??[id number] ? Location/Status: ??SPDIMAM/REG CLI ? Mnemonic/Ordering Site: ??DIGSC/SPMAM Ordering Physician: ??JIM GUERRA MD [facility] Screening Digital - 08/15/23 - 724 Report Status:Signed EXAM: [facility] Screening Digital EXAM DATE AND TIME: 08/15/2023 7:25 AM HISTORY: ??Annual screening COMPARISON: ??Multiple exams dating back to 2019 TECHNIQUE: Bilateral digital breast tomosynthesis was performed in the CC and MLO projections. Computer aided detection with [employer] 3D 3.1 was employed. TISSUE DENSITY: b. [...] screening mammogram BILATERAL in 1 year. 3341F, 7025F Dictating Physician: ??ALBERTO GRIFFIN MD Electronically Signed by: ??ALBERTO GRIFFIN MD Dic Date/Time: ??08/15/23 0843 Sign date/Time: ??08/15/23 0844 Procedure Note Alberto Griffin MD - 12/28/2023 [facility] Diagnostic Imaging Department [address] [place] [address] Patient: CYDNEYALFONSOANN /Age/Sex: 1955 - 67 - F Unit#: [id number] Location/Status: SPDIMAM/REG CLI Mnemonic/Ordering Site: [facility] Ordering Physician: JIM GUERRA MD [facility] Screening Digital - 08/15/23724 Report Status:Signed EXAM: [facility] Screening Digital EXAM DATE AND TIME: 08/15/2023 7:25 AM HISTORY: Annual screening COMPARISON: Multiple exams dating back to 2019 TECHNIQUE: Bilateral digital breast tomosynthesis was performed in the CCand MLO projections. Computer aided detection with [employer] 3D 3.1was employed. TISSUE DENSITY: b. There [...] screening mammogram BILATERAL in 1 year. 3341F, 7025F Dictating Physician: ALBERTO GRIFFIN MD Electronically Signed by: ALBERTO GRIFFIN MD Dic Date/Time: 08/15/2343 Sign date/Time: 08/15/23843 Jim Guerra DO IMG BI PROCEDURES Final Resul t from Last 3 Months or Most Recently Relevant to Health Maintenance Insurance [employer] [place] Care Teams Application Development Team Lead Relationship Specialty Start Date End Date Jim Guerra DO [address] [place] [phone] PCP - General Internal Medicine 02/23/24
== END 2024-08-21 11:31 | disposition home or self-care (01) ==
LOC: HO.HMGCX 11:30
PROVIDERS: PCP Internal Medicine; Visit Provider Urology
DX: R35.0 Frequency of micturition (principal); R35.1 Nocturia
CPT/HCPCS: 76770

== ENCOUNTER → 2024-08-21 11:32 | Outpatient (BNV) | payer MEDICARE, SELFPAY | PROVIDERS: PCP Internal Medicine; Visit Provider Radiology Diagnostic Radiology | DX: R35.0 Frequency of micturition (principal) | CPT/HCPCS: 76770 ==

== ENCOUNTER 2024-09-06 11:42 | Outpatient (AMB) | payer BC, SELFPAY ==
--- NOTE | 2024-09-06 11:55 | A.OFFVIS_ITS ---
Intake Visit Reasons: 10w/US Intake Note: Patient presents today for 10w/US * Renal US 08/21 Urology Medication:none Blood Thinner:none Antibiotic Allergies:none PVR:0ml Allergies Sulfa (Sulfonamide Antibiotics) Allergy (Mild, Verified 09/06/24 11:58) Agitated codeine sulfate Allergy (Mild, Uncoded 06/19/24 14:51) Agitated latex gloves Allergy (Mild, Uncoded 06/19/24 14:51) Agitated pencillin v potassium Allergy (Mild, Uncoded 06/19/24 14:51) Agitated Medication List - Last Reconciled 09/06/24 by Blas Lala MD bupropion HCl 75 mg PO BID fluticasone propionate 50 mcg/actuation 1 spray intranasal DAILY meloxicam 15 mg PO DAILY solifenacin (Vesicare) 5 mg PO DAILY HPI Comments Details: 08/27/24 History of Present Illness - The patient is a 68-year-old female presenting with bacteriuria and urinary frequency. - Initially seen in June for bacteriuria and urinary frequency, prescribed Mirabegron 50 mg. - Lifestyle changes, including reducing caffeine intake, were advised. - Renal ultrasound showed normal kidneys. - Medication adherence issues due to cost; patient not taking prescribed medication. - Reduction in coffee intake led to symptom improvement; patient gets up two to three times at night. - Persistent microscopic hematuria noted; urine sample sent for cytology. Results - Renal ultrasound: Normal kidneys, unremarkable bladder. - Urine analysis: Trace blood present, persistent microscopic hematuria. Discussion Notes I discussed with the patient the normal results of the renal ultrasound and the presence of microscopic hematuria. We talked about the importance of further evaluation with a cystoscopy to rule out any bladder abnormalities. I explained the procedure, including the use of numbing jelly and antibiotics, and the potential findings such as bladder thickening or small growths. We also discussed the cost issues with the current medication and the possibility of prescribing Vesicare if it is more affordable. Follow-up was planned to reassess the condition and evaluate the effectiveness of the new medication. Plan - Prescribe Vesicare 5 mg daily due to cost issues with previous medication. - Schedule cystoscopy to evaluate persistent microscopic hematuria. - Send urine for cytology to check for cellular abnormalities. - Plan follow-up in eight weeks to assess Vesicare's effectiveness and urinary symptoms. 06/26/24--68-year-old female presenting with nocturia. She describes an onset of nearly a year, with symptoms escalating to voiding up to five times a night, impacting her sleep significantly. Despite this frequent urination, she does not return to sleep and feels exhausted throughout the daytime. She has chronic lower back pain. There is no notable history of urinary tract infections recently., While she has a strong family history of diabetes, she has not been treated for it. During daytime hours, she voids frequently. Her caffeine consumption remains moderate at an average of two servings a day, discussed bladder irritants including caffeine may exacerbate her urinary symptoms. I discussed overactive bladder contributing to the patient's nocturia. We reviewed the possible influence of age-related estrogen changes on bladder function, causing bladder spasms. I recommended reducing caffeine intake to see if it helps alleviate symptoms. We agreed to conduct further diagnostic imaging, including an ultrasound of the kidneys and bladder, to rule out structural concerns. I also explained the potential benefits of pharmacological intervention with Mirabegron to help with bladder relaxation. The patient showed understanding and interest in pursuing treatment through medication, appreciating the importance of assessing the ultrasound results to offer a comprehensive diagnosis. Urinary Symptoms Review - Nocturia several times per night, with frequency up to five times on some occasions - Onset of urinary symptoms about a year ago - Daytime frequency of urination noted, occurring four to five times - No history of recent urinary tract infections - No associated dysuria reported - Moderate caffeine intake, consuming one to three cups per day PFSH Medical History Nocturia Pain in right knee Primary insomnia Hyperlipidemia, unspecified Major depressive disorder, recurrent, moderate Type 2 diabetes mellitus without complications Review of Systems Const All systems reviewed & are unremarkable except as noted in HPI and below Reports no additional complaints Eyes Reports no additional complaints ENT Reports no additional complaints Card Reports no additional complaints Resp Reports no additional complaints GI Reports no additional complaints Reports as per HPI Musc Reports no additional complaints Skin/Breast Reports system reviewed and no additional complaints, except as documented Neuro Reports no additional complaints Psych Reports no additional complaints Endo Reports no additional complaints Veto/Lymph Reports no additional complaints Aller/Immun Reports no additional complaints Office Procedures Post Void Residual Post Residual Void Post Void Residual (PVR): 0 [id number]-[id number] Void Residual by ultrasound Results AMB Urinalysis, Automated UA Leukoctes 0 Leni/uL Last Edit by Felisha Calvillotiz on 09/06/24 13:39 UA Nitrite Negative Last Edit by Felisha Calvillotiz on 09/06/24 13:39 UA Urobilinogen 3.5 mg/dL Last Edit by Felisha Calvillotiz on 09/06/24 13:39 UA Protein 0 mg/dL Last Edit by Felisha Calvillotiz on 09/06/24 13:39 UA pH 6.0 Last Edit by Felisha Calvillotiz on 09/06/24 13:39 UA Blood 10 Jan/uL Last Edit by Felisha Calvillotiz on 09/06/24 13:39 UA Specific [place] 1.015 Last Edit by Felisha Calvillotiz on 09/06/24 13:39 UA Ketone Negative Last Edit by Felisha Calvillotiz on 09/06/24 13:39 UA Bilirubin 0 mg/dL Last Edit by Felisha Calvillotiz on 09/06/24 13:39 UA Glucose 0 mg/dL Last Edit by Felisha Calvillotiz on 09/06/24 13:39 Results Reviewed Results Reviewed: Date of Service: 08/21/24 CLINICAL HISTORY: R35.0 - Frequency of micturition US Renal Comparison: None Findings: Right kidney normal size and echotexture, 9.7 cm length. Left kidney normal size and echotexture, 9.9 cm length. No collecting system dilatation of either kidney. Normal color Doppler. Urinary bladder is unremarkable. Prevoid volume 448 mL. Postvoid volume 0 mL. Bilateral ureteral jets are visualized. IMPRESSION: 1. Normal kidneys. Assessment & Plan Assessment & Plan (1) Nocturia more than twice per night: Code(s): R35.1 - Nocturia Category: Medical (2) Urinary frequency: Code(s): R35.0 - Frequency of micturition Category: Medical (3) Microscopic hematuria: Code(s): R31.29 - Other microscopic hematuria Category: Medical Orders: Orders AMB Urinalysis Automated Today Z13.9 - Encounter for screening, unspecified AMB Post Void Residual by ultrasound Today R35.0 - Frequency of micturition Medications: New solifenacin (Vesicare) 5 mg PO DAILY 30 tabs 5RF Scribe Plan - Not visible on output: Patient was informed and verbally consented to the use of an ambient scribe for clinic note documentation during this visit. Coding Level of Care Code Est Pt Level 4 (95357) Diagnoses Nocturia more than twice per night R35.1 Urinary frequency R35.0 Microscopic hematuria R31.29 CPT Codes Post Residual Void - PVR CPT Code: 70161-[id number] Void Residual by ultrasound ([id number])
--- OUTSIDE RECORDS SUMMARY | 2024-09-06 14:06 | XMS_ITS | Clinical Summary ---
Author Organization [facility] Address [address] [place] [address] Phone Care Team Providers Care Wash Driller Name Role Phone Gab Guerra Primary Care Provider [phone] Social History Tobacco Use Types Packs/Day Years [...] LAB CHEMISTRY METHOD 05/07/2024 11:[address] [facility] Triglycerides 90 0 - 150 mg/dL LAB CHEMISTRY METHOD 05/07/2024 11:[address] [facility] HDL 49 >=40 mg/dL LAB CHEMISTRY METHOD 05/07/2024 11:[address] [facility] LDL Calculated 118(H) 0 - 100 mg/dL LAB CHEMISTRY METHOD 05/07/2024 11:[address] [facility] VLDL Cholesterol [place] 18 mg/dL LAB CHEMISTRY METHOD 05/07/2024 11:[address] [facility] Non HDL Chol. (LDL+VLDL) 136 <145 mg/dL LAB CHEMISTRY METHOD 05/07/2024 11:[address] [facility] Chol/HDL Ratio 3.8 0.0 - 4.4 LAB CHEMISTRY METHOD 05/07/2024 11:[address] [facility] Blood Venous blood specimen / Unknown Venipuncture / Unknown 05/07/2024 9:03 AM EST 05/07/2024 9:03 AM EST Ed Waterman LAB BLOOD ORDERABLES Final Resul t [facility] [address] [place] [address], * BD Bone Density DXA Axial Skeleton (03/23/2024 8:21 AM EST) Anatomical Region Laterality Modality Wrist, Hip, L-spine Bone Densito metry 03/23/2024 8:48 AM EST Impressions 03/23/2024 8:53 AM EST 1. Osteopenia. There has been an increase of 3.1% in bone mineral density in the lumbar spine since the prior examination of 04/13/2018. There has been a decrease of 1.8% in bone mineral density in the right femur and a decrease of 0.8% in bone mineral density in the left femur. 2. FRAX analysis yields a 10-year probability of major osteoporotic fracture of 8.7% and a 10-year probability of hip fracture of 1.1%. Code 38978 -------- FINAL REPORT -------- Dictated By: Juan Eldridge Dictated Date: 03/23/2024 08:48 ET Assigned Physician: Juan Eldridge Reviewed and Electronically Signed By: Juan Eldridge Signed Date: 03/23/2024 08:53 ET Workstation ID: [id number] Transcribed By: Self Edit Transcribed Date: 03/23/2024 08:48 ET Narrative 03/23/2024 8:53 AM EST HISTORY: The patient is a 68-year-old postmenopausal female with clinical concern for metabolic bone disease. FINDINGS: Dual energy [...] 104% of that of age matched controls. This yields a T-score of -0.7 and a Z-score of 0.3 and there is therefore no evidence of osteoporosis or osteopenia here. However, the T-score of left femoral neck is [...] density of the femurs bilaterally is 0.916 gm/zi4mvsio is 91% of that of young normals [...] probability of hip fracture of 1.1%. Code 58591 -------- FINAL REPORT -------- Dictated By: Juan Eldridge Dictated Date: 03/23/2024 08:48 ET Assigned Physician: Juan Eldridge Reviewed and Electronically Signed By: Juan Eldridge Signed Date: 03/23/2024 08:53 ET Workstation ID: [id number] Transcribed By: Self Edit Transcribed Date: 03/23/2024 08:48 ET us Gab Guerra DO IMG DXA PROCEDURES Final Resu lt * [facility] SCREENING DIGITAL (08/15/2023 8:44 AM EDT) Anatomical Region Laterality Modality Mammography 08/15/2023 7:11 AM EDT Narrative 08/15/2023 8:44 AM EDT [facility] Diagnostic Imaging Department [address] [place] [address] [id number] Patient: ANN ALCARAZ Alex Longoria/Age/Sex: 1955 - 67 - F Unit#: [id number] Location/Status: SPDIMAM/REG CLI Mnemonic/Ordering Site: DIGSC/SPMAM Ordering Physician: GAB GUERRA MD [facility] Screening Digital - 08/15/23724 Report Status:Signed EXAM: [facility] Screening Digital EXAM DATE AND TIME: 08/15/2023 7:25 AM HISTORY: Annual screening COMPARISON: Multiple exams dating back to 2019 TECHNIQUE: Bilateral digital breast tomosynthesis was performed in the CC and MLO projections. Computer aided detection with Geotender 3D 3.1 was employed. TISSUE DENSITY: b. There are scattered areas of fibroglandular density. FINDINGS: No suspicious masses, grouped microcalcifications, or areas of architectural distortion are seen. The skin and vascularity are unremarkable. IMPRESSION: Stable mammographic appearance of the breasts. No evidence of malignancy is seen. A negative mammogram in the presence of a clinically suspicious palpable abnormality does not preclude the possibility of malignancy or alter the indications for biopsy. BI-RADS: Category 1: Negative RECOMMENDATION(S): 1: Routine screening mammogram BILATERAL in 1 year. 3341F, 7025F Dictating Physician: ALBERTO GRIFFIN MD Electronically Signed by: ALBERTO GRIFFIN MD Dic Date/Time: 08/15/23 0843 Sign date/Time: 08/15/23 0844 Procedure Note Alberto Griffin MD - 12/28/2023 [facility] Diagnostic Imaging Department [address] [place], [place] [id number] Patient: ANN ALCARAZ /Age/Sex: 1955 - 67 - F Unit#: [id number] Location/Status: SPDIMAM/REG CLI [facility]em[facility] Order[facility] Physician: GAB GUERRA MD [facility] Screening Digital - 08/15/23 - 724 Report Status:Signed EXAM: [facility] Screening Digital EXAM DATE AND TIME: 08/15/2023 7:25 AM HISTORY: Annual screening COMPARISON: Multiple exams dating back to 2019 TECHNIQUE: Bilateral digital breast tomosynthesis was performed in the CCand MLO projections. Computer aided detection with Geotender 3D 3.1was employed. TISSUE DENSITY: b. There [...] GRIFFIN MD Dic Date/Time: 08/15/2343 Sign date/Time: 08/15/23 0844 Gab Guerra DO IMG BI PROCEDURES Final Resul t from Last 3 Months or Most Recently Relevant to Health Maintenance Insurance [employer] [place] MEDICARE [place]ANTAGE Care Teams Wash Driller Relationship Specialty Start Date End Date Gab Guerra DO [address] [place] [phone] PCP - General Internal Medicine 02/23/24
== END 2024-09-06 12:26 | disposition home or self-care (01) ==
PROVIDERS: PCP Internal Medicine; Visit Provider Urology
DX: Z13.9 Encounter for screening, unspecified (principal)

== ENCOUNTER 2024-09-06 11:42 | Outpatient (REF) | payer BC, SELFPAY ==
[2024-09-06 17:03] LABS: Urine Cytology See Pathology rpt
== END 2024-09-06 11:43 | disposition home or self-care (01) ==
LOC: HO.LNP 11:42
PROVIDERS: PCP Internal Medicine; Visit Provider Urology
DX: R31.29 Other microscopic hematuria (principal); R35.1 Nocturia; R35.0 Frequency of micturition
CPT/HCPCS: 51798; 81003; 88112

== ENCOUNTER 2024-11-22 09:13 | Outpatient (AMB) | payer MEDICARE, BC, SELFPAY ==
--- NOTE | 2024-11-22 09:53 | MHC.OFFVIS ---
Intake Visit Reasons: cysto Intake Note: Patient presents today for a cystoscopy Urology Medication:none Blood Thinner:none Antibiotic Allergies:none Lot:[id number] Exp:06/07/27 Allergies Sulfa (Sulfonamide Antibiotics) Allergy (Mild, Verified 11/22/24 09:54) Agitated codeine sulfate Allergy (Mild, Uncoded 06/19/24 14:51) Agitated latex gloves Allergy (Mild, Uncoded 06/19/24 14:51) Agitated pencillin v potassium Allergy (Mild, Uncoded 06/19/24 14:51) Agitated Medication List - Last Reconciled 11/22/24 by Blas Lala MD bupropion HCl 75 mg PO BID fluticasone propionate 50 mcg/actuation 1 spray intranasal DAILY meloxicam 15 mg PO DAILY solifenacin (Vesicare) 5 mg PO DAILY HPI Comments Details: 11/22/24-- Here for office cystoscopy. History of Present Illness The patient is a 69-year-old female presenting with overactive bladder symptoms. She experiences frequent urination and nocturia, leading to significant sleep disruption. The current solifenacin dosage is insufficient, prompting a dosage increase. Patient reports No leakage occurs with coughing or sneezing, Pelvic exam - vaginal atrophy, no prolapse, after filling the bladder during cystoscopic evaluation, leakage was noted during a stress test with valsalva, aury leakage with coughing. Cystoscopy showed mild bladder wall thickening, contributing to bladder spasms. The patient is advised to reduce caffeine intake, currently at 10 ounces of coffee daily, to manage symptoms better. Results - Cystoscopy: Mild bladder wall thickening observed Plan Overactive Bladder - Increase solifenacin dosage to 10 mg for better symptom control. - Advise evening medication intake to reduce nocturia. - Recommend caffeine reduction to manage symptoms. - Plan follow-up via phone to evaluate symptom improvement post-dosage adjustment. 09/06/24 - The patient is a 68-year-old female presenting with bacteriuria and urinary frequency. - Initially seen in June for bacteriuria and urinary frequency, prescribed Mirabegron 50 mg. - Lifestyle changes, including reducing caffeine intake, were advised. - Renal ultrasound showed normal kidneys. - Medication adherence issues due to cost; patient not taking prescribed medication. - Reduction in coffee intake led to symptom improvement; patient gets up two to three times at night. - Persistent microscopic hematuria noted; urine sample sent for cytology. Results - Renal ultrasound: Normal kidneys, unremarkable bladder. - UA: Trace blood present, persistent microscopic hematuria. Plan - Prescribe Vesicare 5 mg daily - Schedule cystoscopy to evaluate persistent microscopic hematuria. - Send urine for cytology - Plan follow-up in eight weeks to assess Vesicare's effectiveness and urinary symptoms. 06/26/24--68-year-old female presenting with nocturia. She describes an onset of nearly a year, with symptoms escalating to voiding up to five times a night, impacting her sleep significantly. Despite this frequent urination, she does not return to sleep and feels exhausted throughout the daytime. She has chronic lower back pain. There is no notable history of urinary tract infections recently., While she has a strong family history of diabetes, she has not been treated for it. During daytime hours, she voids frequently. Her caffeine consumption remains moderate at an average of two servings a day, discussed bladder irritants including caffeine may exacerbate her urinary symptoms. I discussed overactive bladder contributing to the patient's nocturia. We reviewed the possible influence of age-related estrogen changes on bladder function, causing bladder spasms. I recommended reducing caffeine intake to see if it helps alleviate symptoms. We agreed to conduct further diagnostic imaging, including an ultrasound of the kidneys and bladder, to rule out structural concerns. I also explained the potential benefits of pharmacological intervention with Mirabegron to help with bladder relaxation. The patient showed understanding and interest in pursuing treatment through medication, appreciating the importance of assessing the ultrasound results to offer a comprehensive diagnosis. Urinary Symptoms Review - Nocturia several times per night, with frequency up to five times on some occasions - Onset of urinary symptoms about a year ago - Daytime frequency of urination noted, occurring four to five times - No history of recent urinary tract infections - No associated dysuria reported - Moderate caffeine intake, consuming one to three cups per day [facility] Medical History Nocturia Pain in right knee Primary insomnia Hyperlipidemia, unspecified Major depressive disorder, recurrent, moderate Type 2 diabetes mellitus without complications Review of Systems Const All systems reviewed & are unremarkable except as noted in HPI and below Reports no additional complaints Eyes Reports no additional complaints ENT Reports no additional complaints Card Reports no additional complaints Resp Reports no additional complaints GI Reports no additional complaints Reports as per HPI Musc Reports no additional complaints Skin/Breast Reports system reviewed and no additional complaints, except as documented Neuro Reports no additional complaints Psych Reports no additional complaints Endo Reports no additional complaints Veto/Lymph Reports no additional complaints Aller/Immun Reports no additional complaints Office Procedures Cystoscopy Consent Discussed risk and benefit or proposed procedure with the patient. Information consent for procedure given to the patient. Discussed technical aspects, risks, benefits and alternatives in full. Addressed all of the patient's questions and concerns regarding the procedure. The patient demonstrated knowledge and understanding. They wish to proceed with this procedure. Preparation The patient was prepped in the usual manner. A set up mechanic crown assembly machine was present and in the room. Genitalia was prepped with betadine solution in a sterile manner. Lidocaine Jelly 2% was placed into the urethra and 16Fr flexible Olympus cystoscope was inserted into the meatus after adequate lubrication. Procedure Time out per protocol performed. Speculum used as indicated for adequate visualization of urethra, the flexible cystoscope is passed transurethrally: The bladder was inspected in its entirety with utilization retroflexion displaying: Tumor(s): no suspicious bladder lesions visualized Trabeculation: Mild to Moderate Mucosal Erthema: Orifices: normal shape and position Urethra: normal Cystoscopy findings: Trabeculation: Mild to Moderat, no suspicious bladder lesions visualized [id number] DISPOSABLE SCOPE URO-G FLEXIBLE SCOPE Procedure code (CPT) selection complete Office Meds lidocaine HCl 2 % mucosal jelly in applicator Performing Provider: Blas Lala MD Performing Location: [facility] Administered by: Mena De La Paz RN on 11/22/24 10:17 Dose Route Admin Location Dispensed Lot Number Expiration Date [facility] 10 mL intra-urethral 20 mL ciprofloxacin HCl 500 mg tablet Performing Provider: Blas Lala MD Performing Location: [facility] Administered by: Mena De La Paz RN on 11/22/24 10:17 Dose Route Admin Location Dispensed Lot Number Expiration Date [facility] 500 mg PO 1 tab phenazopyridine 200 mg tablet Performing Provider: Blas Lala MD Performing Location: [facility] Administered by: Mena De La Paz RN on 11/22/24 10:17 Dose Route Admin Location Dispensed Lot Number Expiration Date [facility] 200 mg PO 1 tab Assessment & Plan Assessment & Plan (1) Nocturia more than twice per night: Code(s): R35.1 - Nocturia Category: Medical (2) Urinary frequency: Code(s): R35.0 - Frequency of micturition Category: Medical (3) Microscopic hematuria: Code(s): R31.29 - Other microscopic hematuria Category: Medical (4) OAB (overactive bladder): Code(s): N32.81 - Overactive bladder Category: Medical Plan Overactive Bladder - Increase solifenacin dosage to 10 mg for better symptom control. - Advise evening medication intake to reduce nocturia. - Recommend caffeine reduction to manage symptoms. - Plan follow-up via phone to evaluate symptom improvement post-dosage adjustment. Orders: Orders AMB Cystoscopy Today R31.29 - Other microscopic hematuria Medications: New solifenacin (Vesicare) 10 mg PO DAILY 30 tabs 3RF Discontinued solifenacin (Vesicare) Discontinued Reason: Doctor's Order 5 mg PO DAILY 30 tabs 5RF Scribe Plan - Not visible on output: Patient was informed and verbally consented to the use of an ambient scribe for clinic note documentation during this visit. Coding Level of Care Code Est Pt Level 4 (51667) Diagnoses Nocturia more than twice per night R35.1 Urinary frequency R35.0 Microscopic hematuria R31.29 OAB (overactive bladder) N32.81 CPT Codes Cystoscopy - CPT: 19385-[id number] ([id number])
--- OUTSIDE RECORDS SUMMARY | 2024-11-22 10:38 | XMS_ITS | Encounter Summary ---
Author Organization [facility] Address [address] [place] [address] Care Team Providers Care Fuller Brush Worker Name Role Phone Jim Thomas Primary Care Provider [phone] Encounter Details Date Type Department Care Team (Late st Contact Info) Description 05/15/2024 Lab Requisition [facility] - Main Lab [address] [facility] [place] [id number] Ed Waterman [address] [place] [phone] Urinary tract infection, site not specified; [...] reflex microscopic (05/15/2024 3:00 PM EST) Specific [place] Urine 1.025 1.003 - 1.030 LAB URINALYSIS - AUTOMATED METHOD 05/15/2024 9:49 PM [facility] pH, Urine 6.0 5.0 - 8.0 pH LAB URINALYSIS - AUTOMATED METHOD 05/15/2024 9:49 PM [facility] Leukocytes, Urine Small(A) Negative LAB URINALYSIS - AUTOMATED METHOD 05/15/2024 9:49 PM [facility] Nitrite, Urine Negative Negative LAB URINALYSIS - AUTOMATED METHOD 05/15/2024 9:49 PM [facility] Protein, Urine Negative <=Trace mg/dL LAB URINALYSIS - AUTOMATED METHOD 05/15/2024 9:49 PM [facility] Glucose, Urine Negative Negative mg/dL LAB URINALYSIS - AUTOMATED METHOD 05/15/2024 9:49 PM [facility] Ketones, Urine Negative Negative mg/dL LAB URINALYSIS - AUTOMATED METHOD 05/15/2024 9:49 PM [facility] Urobilinogen , Urine 0.2 0.2 - 1.0 mg/dL LAB URINALYSIS - AUTOMATED METHOD 05/15/2024 9:49 PM [facility] Bilirubin, Urine Negative Negative LAB URINALYSIS - AUTOMATED METHOD 05/15/2024 9:49 PM [facility] Blood, Urine Negative Negative LAB URINALYSIS - AUTOMATED METHOD 05/15/2024 9:49 PM [facility] RBC, Urine 1 0 - 4 /HPF 05/15/2024 9:49 PM [facility] WBC, Urine 3 0 - 4 /HPF 05/15/2024 9:49 PM [facility] Squamous Epithelial, Urine 50 0 - 60 /LPF 05/15/2024 9:49 PM EST [facility] Non-Squamous Epithelial, Urine 2-5 Transitional epithelial cells. /LPF 05/15/2024 9:49 PM [facility] Crystals, Urine Moderate Amorphous Urate crystals. /LPF 05/15/2024 9:49 PM EST [facility] Bacteria, Urine Negative Negative /HPF 05/15/2024 9:49 PM [facility] Hyaline Casts, Urine 1 0 - 3 /LPF 05/15/2024 9:49 PM [facility] Mucus, Urine Trace(A) None /HPF 05/15/2024 9:49 PM [facility] Urine Urine specimen obtained by clean catch procedure / Unknown 05/15/2024 3:00 PM EST 05/15/2024 7:24 PM EST Narrative [facility] - 05/15/2024 9:49 PM EST QNS to spin,urine sediment done on un-spun urine. [facility] URINE ORDERABLES Final Resul t [facility] [address] [place] [address], [place] [phone] * Culture urine (05/15/2024 3:00 PM EST) Culture, Urine 10,000-49,000 CFU/mL Mixed urogenital esther, no uropathogens present. Suggest repeat specimen if clinically indicated. 05/16/2024 2:30 PM EST [facility] Urine Urine specimen obtained by clean catch procedure / Unknown 05/15/2024 3:00 PM EST 05/15/2024 7:24 PM EST [facility] MICROBIOLOGY - GENERAL ORDER JENNIFER Final Result [facility] [address] [place] [address], documented in this encounter Visit Diagnoses Diagnosis Urinary tract infection, site not specified Hematuria, unspecified documented in this encounter Care Teams Fuller Brush Worker Relationship Specialty Start Date End Date Jim Thomas DO [address] [place] [phone] PCP - General Internal Medicine 02/23/24 documented as of this encounter
--- OUTSIDE RECORDS SUMMARY | 2024-11-22 10:38 | XMS_ITS | Clinical Summary ---
Author Organization [facility] Address [address] [place] [address] Phone Care Team Providers Care Rivet Passer Name Role Phone Gab Guerra DO Primary Care Provider [phone] Encounters Date Type Department Care Team Description 09/20/2024 4:20 PM EDT - 09/20/2024 11:59 PM EDT Hospital Encounter [facility] Ultrasound [address] [place] [address] Leg swelling Discharge Disposition: Home or Self Care from Last 3 Months Social History Tobacco [...] PCV) 10/05/2003 Colorectal Cancer Screening: Colonoscopy 02/24/2022 Falls Risk Assessment 02/24/2022 Hepatitis C Screening 02/24/2022 Medicare Annual Wellness Visit 02/24/2022 Social Influencers of Health Screening 02/24/2022 Depression Screening 03/14/2024 COVID-19 Vaccine ( season) 2024 11/25/2023, 12/08/2022, 01/07/2022, Additional history exists Influenza Vaccine (#1) 2024 4, 12/04/2022, 02/22/2022, Additional history exists Breast Cancer Screening 08/14/2025 08/15/19 24, 08/03/2022, 07/15/2021, Additional history exists Cholesterol Screening (Lipid Panel) 05/07/2029 05/07/2024 Osteoporosis Screening (Bone Density Screening) 03/23/2034 03/23/2024, 04/13/2018 Zoster Vaccines Completed 08/15/2020, 02/23/2020 RSV Immunization Adult Patients Completed 03/31/2023 HIB Vaccines Aged Out No longer eligi [...] Procedure Name Priority Date/Time Associated Diagnosis Comments VAS US DUPLEX UPPER EXT VENOUS RIGHT Routine 09/20/2024 5:21 PM EDT Leg swelling LIPID PANEL WITH REFLEX TO DIRECT LDL Routine 05/07/2024 9:03 AM EST Macrocytosis HLD (hyperlipidemia) IGT (impaired glucose tolerance) Nocturia BD BONE DENSITY DXA AXIAL SKELETON Routine 03/23/2024 8:21 AM EST Post-menopausal QUYEN SCREENING DIGITAL Routine 08/15/2023 8:44 AM EDT Encounter for screening mammogram for malignant neoplasm of breast from Last 3 Months or Most Recently Relevant to Health Maintenance Results * Vascular US duplex upper extremity venous right (09/20/2024 5:21 PM EDT) Anatomical Region Laterality Modality Vascular, Abdomen Ultrasound 09/20/2024 5:54 PM EDT Impressions 09/20/2024 5:54 PM EDT 1. Negative for right upper extremity deep vein thrombosis. This document has been electronically signed by: Ani Melendez MD on 09/20/2024 17:54:02 Narrative 09/20/2024 5:54 PM EDT INDICATION: swelling r/o dvt Venous duplex ultrasound right upper extremity Comparison: None provided Findings: Accessible deep venous segments are fully compressible with normal Doppler color flow and spectral tracings. Procedure Note Ani Dover MD - 09/20/2024 INDICATION: swelling r/o dvt Venous duplex ultrasound right upper extremity Comparison: None provided Findings: Accessible deep venous segments are fully compressible with normalDoppler color flow and spectral tracings. IMPRESSION: 1. Negative for right upper extremity deep vein thrombosis. This document has been electronically signed by: Ani Melendez MD on 09/20/2024 17:54:02 [facility] CV VASCULAR PROCEDURES Final Result * (ABNORMAL) Lipid panel with reflex to direct LDL (05/07/2024 9:03 AM EST) Cholesterol 185 0 - 200 mg/dL LAB CHEMISTRY METHOD 05/07/2024 11:40 AM [facility] Triglycerides 90 0 - 150 mg/dL LAB CHEMISTRY METHOD 05/07/2024 11:40 AM EST [facility] HDL 49 >=40 mg/dL LAB CHEMISTRY METHOD 05/07/2024 11:40 AM [facility] LDL Calculated 118(H) 0 - 100 mg/dL LAB CHEMISTRY METHOD 05/07/2024 11:40 AM [facility] VLDL Cholesterol [place] 18 mg/dL LAB CHEMISTRY METHOD 05/07/2024 11:40 AM [facility] Non HDL Chol. (LDL+VLDL) 136 <145 mg/dL LAB CHEMISTRY METHOD 05/07/2024 11:40 AM EST [facility] Chol/HDL Ratio 3.8 0.0 - 4.4 LAB CHEMISTRY METHOD 05/07/2024 11:40 AM EST [facility] Blood Venous blood specimen / Unknown Venipuncture / Unknown 05/07/2024 9:03 AM EST 05/07/2024 9:03 AM EST us Ed Waterman LAB BLOOD ORDERABLES Final Resul t [facility] [address] [place] [address], [place] [phone] * BD Bone Density DXA Axial Skeleton [...] probability of hip fracture of 1.1%. Code 77082 -------- FINAL REPORT -------- Dictated By: Juan Eldridge Dictated Date: 03/23/2024 08:48 ET Assigned Physician: Juan Eldridge Reviewed and Electronically Signed By: Juan Eldridge Signed Date: 03/23/2024 08:53 ET Workstation ID: [id number] Transcribed By: Self Edit Transcribed Date: 03/23/2024 [...] density of the femurs bilaterally is 0.916 gm/cf4crqdj is 91% of that of young normals [...] probability of hip fracture of 1.1%. Code 68195 -------- FINAL REPORT -------- Dictated By: Juan Eldridge Dictated Date: 03/23/2024 08:48 ET Assigned Physician: Juan Eldridge Reviewed and Electronically Signed By: Juan Eldridge Signed Date: 03/23/2024 08:53 ET Workstation ID: [id number] Transcribed By: Self Edit Transcribed Date: 03/23/2024 08:48 ET Gab Guerra DO [facility] [place]XA PROCEDURES Final Resu lt * QUYEN SCREENING DIGITAL (08/15/2023 8:44 AM EDT) Anatomical Region Laterality Modality Mammography 08/15/2023 7:11 AM EDT Narrative 08/15/2023 8:44 AM EDT [facility] Diagnostic Imaging Department [address] [place] [address] Patient: ANN ALCARAZ D.O.B./Age/Sex: 1955 - 67 - F Unit#: [id number] [facility]Ordering Site: [facility] Ordering Physician: GAB GUERRA MD Quyen Screening Digital - 08/15/23724 Report Status:Signed EXAM: Quyen Screening Digital EXAM DATE AND TIME: 08/15/2023 7:25 AM HISTORY: Annual screening COMPARISON: Multiple exams dating back to 2019 TECHNIQUE: Bilateral digital breast tomosynthesis was performed in the CC and MLO projections. Computer aided detection with [employer] 3D 3.1 was employed. TISSUE DENSITY: b. [...] screening mammogram BILATERAL in 1 year. 3341F, 7033F Dictating Physician: ALBERTO GRIFFIN MD Electronically Signed by: ALBERTO GRIFFIN MD Dic Date/Time: 08/15/2343 Sign date/Time: 08/15/23 0844 Procedure Note Alberto Griffin MD - 12/28/2023 [facility] Diagnostic Imaging Department [address] [place] [address] Patient: ANN ALCARAZ /Age/Sex: 1955 - 67 - F Unit#: [id number] [facility] Mnemonic/Ordering Site: [facility] Ordering Physician: GAB GUERRA MD Quyen Screening Digital - 08/15/23 - 724 Report Status:Signed EXAM: [facility] Screening Digital EXAM DATE AND TIME: 08/15/2023 7:25 AM HISTORY: Annual screening COMPARISON: Multiple exams dating back to 2019 TECHNIQUE: Bilateral digital breast tomosynthesis was performed in the CCand MLO projections. Computer aided detection with [employer] 3D 3.1was employed. TISSUE DENSITY: b. There [...] screening mammogram BILATERAL in 1 year. 3341F, 7039F Dictating Physician: ALBERTO GRIFFIN MD Electronically Signed by: ALBERTO GRIFFIN MD Dic Date/Time: 08/15/23 0843 Sign date/Time: 08/15/23 0844 Gab Guerra DO [facility] BI PROCEDURES Final Resul t from Last 3 Months or Most Recently Relevant to Health Maintenance Insurance [employer] [place] MEDICARE ADVANTAGE Care Teams Rivet Passer Relationship Specialty Start Date End Date Gab Guerra DO [address] [place] [id number] PCP - General Internal Medicine 02/23/24
--- OUTSIDE RECORDS SUMMARY | 2024-11-22 10:38 | XMS_ITS | Encounter Summary ---
Author Organization [facility] Address [address] [place] [address] Phone Care Team Providers Care Supervisor Cabinetmaker Name Role Phone Jim Thomas DO Primary Care Provider [phone] Encounter Details Date Type Department Care Team (Late st Contact Info) Description 02/21/2018 Procedure Pass [facility] [address] [place] [address] Social History Tobacco Use Types Packs/Day Years Used Date Smoking Tobacco: Never Smokeless Tobacco: Never Comments Unknown Sex and Gender Information Value Date Recorded Sex Assigned at Not on file Legal Sex Female 4:27 PM EST Gender Identity Not on file Sexual Orientation Not on file documented as of this encounter Plan of Treatment Not on file documented as of this encounter Visit Diagnoses Not on filedocumented in this encounter Care Teams Supervisor Cabinetmaker Relationship Specialty Start Date End Date Jim Thomas DO [address] [place] [address] [address] [place] [address] PCP - General Internal Medicine 02/08/18 documented as of this encounter Additional Source Comments The information contained in this document represents components of the legal health record. It is not the complete legal health record.[facility]
--- OUTSIDE RECORDS SUMMARY | 2024-11-22 10:38 | XMS_ITS | Encounter Summary ---
Author Organization [facility] Address [address] [place] [address] Phone Care Team Providers Care School Physical Therapist Name Role Phone Jim Thomas DO Primary Care Provider [phone] Encounter Details Date Type Department Care Team (Late st Contact Info) Description 02/21/2018 Procedure Pass [facility] [address] [place] [address] Social History Tobacco Use Types Packs/Day Years [...] on filedocumented in this encounter Care Teams School Physical Therapist Relationship Specialty Start Date End Date Jim Thomas DO [address] [place] [address] [address] [place] [address] PCP - General Internal Medicine 02/08/18 documented as of this encounter Additional Source Comments The information contained in this document represents components of the legal health record. It is not the complete legal health record.[facility]
--- OUTSIDE RECORDS SUMMARY | 2024-11-22 10:38 | XMS_ITS | Clinical Summary ---
Author Organization [facility] Address [address] [place] [address] Phone Care Team Providers Care Senior Librarian Name Role Phone Jim Thomas DO Primary Care Provider [phone] Allergies Active Allergy Reactions Criticality Noted Date Comments Codeine 02/21/2018 Latex 02/21/2018 Penicillins 02/21/2018 Sulfites 02/21/2018 Medications fluticasone propionate (FLONASE) 50 mcg/actuation nasal spray 1 spray by Nasal route daily. Active buPROPion (WELLBUTRIN XL) 150 MG ER 24 hr tablet Take 150 mg by mouth daily. Active ibuprofen (ADVIL,MOTRIN) 200 MG tablet Take 200 mg by mouth every 6 (six) hours as needed for pain (specific location in comments). Active Social History Tobacco Use Types Packs/Day Years Used Date Smoking Tobacco: Never Smokeless Tobacco: Never Education Answer Date Recorded Are you interested in more education? Not on mayte e 07/09/2022 Are you concerned about learning? Not on file 07/09/2022 No 07/09/2022 No 07/09/2022 Digital Access Answer Date Recorded No 08/07/2022 No 08/07/2022 No 08/07/2022 Reliable internet access at home? Not on file 08/07/2022 Device with a working camera? Not on file Comments Unknown Sex and Gender Information Value Date Recorded Sex Assigned at Not on file Legal Sex Female 4:27 PM EST Gender Identity Not on file Sexual Orientation Not on file Last Filed Vital Signs Vital Sign Reading Time Taken Comments Blood Pressure - - Pulse - - Temperature 36.3 C (97.4 F) 11/21/2018 3:04 PM EDT Respiratory Rate - - Oxygen Saturation - - Inhaled Oxygen Concentration - - Weight 69.9 kg (154 lb 1.6 oz) 11/21/2018 3:04 P M EDT Height 144.8 cm (4' 9 ) 11/21/2018 3:04 PM EDT Body Mass Index 33.35 11/21/2018 3:04 PM EDT Plan of Treatment Health Maintenance Due Date Last Done Comments Adult Td,Tdap Booster 1955 LIPID PANEL 1955 DEPRESSION SCREENING 1965 HEPATITIS C SCREENING 10/05/1971 MAMMOGRAM 1993 COLOGUARD 1998 COLONOSCOPY 1998 COLORECTAL CANCER SCREENING 1998 FIT TEST 1998 FOBT 1998 SIGMOIDOSCOPY 1998 VIRTUAL COLONOSCOPY 1998 PNEUMOCOCCAL VACCINES (50+ years) (1 of 1 - PCV) 10/05/2003 OSTEOPOROSIS SCREENING INITI AL (ONE-TIME) 2018 ZOSTER VACCINES (2 of 2) 04/19/2020 02/23/2020 INFLUENZA VACCINE (#1) 2024 11/10/2018 COVID-19 VACCINE (3 - 2024-2 6 season) 2024 06/02/2020, 05/12/2020 RSV VACCINE (1 - 1-dose 75+ series) 2028 SMOKING STATUS SCREENING (On ce After 26 Yrs) Completed 11/21/2018 HEPATITIS A VACCINES Aged Out No long er eligible based on patient's age to complete this topic HIB VACCINES Aged Out No longer eligi ble based on patient's age to complete this topic MENINGOCOCCAL VACCINES (ACWY) Aged Out No longer eligible based on patient's age to complete this topic MENINGOCOCCAL VACCINES (B) Aged Out N o longer eligible based on patient's age to complete this topic Medical Devices Not on file Insurance [employer] MEDICARE PPO BLUE REPLACEMENT [facility] MEDICARE PPO BLUE REPLACEMENT [facility] MEDICARE PPO BLUE REPLACEMENT [facility] MEDICARE PPO BLUE [address]PLACEMENT [place] [address] [address] MEDICARE PPO BLUE REPLACEMENT [facility] MEDICARE PPO BLUE REPLACEMENT [facility] MEDICARE PPO BLUE [place] [address] [address] MEDICARE PPO BLUE REPLACEMENT [facility] MEDICARE PPO BLUE REPLACEMENT [facility] Care Teams Senior Librarian Relationship Specialty Start Date End Date Jim Thomas DO [address] [place] [id number] PCP - General Internal Medicine 02/08/18 Additional Source Comments The information contained in this document represents components of the legal health record. It is not the complete legal health record.[facility]
--- OUTSIDE RECORDS SUMMARY | 2024-11-22 10:38 | XMS_ITS | Encounter Summary ---
Author Organization [facility] Address [address] [place] [address] Phone Care Team Providers Care Tent Finisher Name Role Phone Jim Thomas DO Primary Care Provider [phone] Encounter Details Date Type Department Care Team (Late st Contact Info) Description 02/21/2018 Procedure Pass [facility] [address] [place] [address] Social History Tobacco Use Types Packs/Day Years [...] on filedocumented in this encounter Care Teams Tent Finisher Relationship Specialty Start Date End Date Jim Thomas DO [address] [place] [address] [address] [place] [address] PCP - General Internal Medicine 02/08/18 documented as of this encounter Additional Source Comments The information contained in this document represents components of the legal health record. It is not the complete legal health record.[facility]
== END 2024-11-22 10:52 | disposition home or self-care (01) ==
LOC: HO.HUSH 09:13
PROVIDERS: PCP Internal Medicine; Visit Provider Urology
DX: R35.1 Nocturia (principal); R35.0 Frequency of micturition; R31.29 Other microscopic hematuria; N32.81 Overactive bladder; Z13.9 Encounter for screening, unspecified
CPT/HCPCS: 52000; 99214

== ENCOUNTER → 2024-11-22 09:13 | Outpatient (BNVA) | payer MEDICARE, SELFPAY | PROVIDERS: PCP Internal Medicine; Visit Provider Urology | DX: R35.1 Nocturia (principal); R35.0 Frequency of micturition; R31.29 Other microscopic hematuria; N32.81 Overactive bladder | CPT/HCPCS: 52000; 81003; 99212 ==

== ENCOUNTER 2025-01-11 11:14 | Outpatient (AMB) | payer MEDICARE, BC, SELFPAY ==
--- NOTE | 2025-01-11 11:41 | A.OFFVIS_ITS ---
Intake Visit Reasons: 7w/meds/urinary frequency Intake Note: Patient presents today for 7w/meds/urinary frequency Urology Medication:None Blood Thinner:None Antibiotic Allergies:None PVR:4ml Allergies Sulfa (Sulfonamide Antibiotics) Allergy (Mild, Verified 01/11/25 11:41) Agitated codeine sulfate Allergy (Mild, Uncoded 06/19/24 14:51) Agitated latex gloves Allergy (Mild, Uncoded 06/19/24 14:51) Agitated pencillin v potassium Allergy (Mild, Uncoded 06/19/24 14:51) Agitated Medication List - Last Reconciled 01/11/25 by Blas Lala MD bupropion HCl 75 mg PO BID fluticasone propionate 50 mcg/actuation 1 spray intranasal DAILY meloxicam 15 mg PO DAILY solifenacin (Vesicare) 10 mg PO DAILY HPI Comments Details: 01/11/25--Ann is here for follow-up she was last seen on 11/22/2024 office cystoscopy was done she is being treated for overactive bladder symptoms VESIcare was increased to 10 mg. 11/22/24-- Here for office cystoscopy. History of Present Illness The patient is a 69-year-old female presenting with overactive bladder symptoms. She experiences frequent urination and nocturia, leading to significant sleep disruption. The current solifenacin dosage is insufficient, prompting a dosage increase. Patient reports No leakage occurs with coughing or sneezing, Pelvic exam - vaginal atrophy, no prolapse, after filling the bladder during cystoscopic evaluation, leakage was noted during a stress test with valsalva, aury leakage with coughing. Cystoscopy showed mild bladder wall thickening, contributing to bladder spasms. The patient is advised to reduce caffeine intake, currently at 10 ounces of coffee daily, to manage symptoms better. Results - Cystoscopy: Mild bladder wall thickening observed Plan Overactive Bladder - Increase solifenacin dosage to 10 mg for better symptom control. - Advise evening medication intake to reduce nocturia. - Recommend caffeine reduction to manage symptoms. - Plan follow-up via phone to evaluate symptom improvement post-dosage adjustment. 09/06/24 - The patient is a 68-year-old female presenting with bacteriuria and urinary frequency. - Initially seen in June for bacteriuria and urinary frequency, prescribed Mirabegron 50 mg. - Lifestyle changes, including reducing caffeine intake, were advised. - Renal ultrasound showed normal kidneys. - Medication adherence issues due to cost; patient not taking prescribed medication. - Reduction in coffee intake led to symptom improvement; patient gets up two to three times at night. - Persistent microscopic hematuria noted; urine sample sent for cytology. Results - Renal ultrasound: Normal kidneys, unremarkable bladder. - UA: Trace blood present, persistent microscopic hematuria. Plan - Prescribe Vesicare 5 mg daily - Schedule cystoscopy to evaluate persistent microscopic hematuria. - Send urine for cytology - Plan follow-up in eight weeks to assess Vesicare's effectiveness and urinary symptoms. 06/26/24--68-year-old female presenting with nocturia. She describes an onset of nearly a year, with symptoms escalating to voiding up to five times a night, impacting her sleep significantly. Despite this frequent urination, she does not return to sleep and feels exhausted throughout the daytime. She has chronic lower back pain. There is no notable history of urinary tract infections recently., While she has a strong family history of diabetes, she has not been treated for it. During daytime hours, she voids frequently. Her caffeine consumption remains moderate at an average of two servings a day, discussed bladder irritants including caffeine may exacerbate her urinary symptoms. I discussed overactive bladder contributing to the patient's nocturia. We reviewed the possible influence of age-related estrogen changes on bladder function, causing bladder spasms. I recommended reducing caffeine intake to see if it helps alleviate symptoms. We agreed to conduct further diagnostic imaging, including an ultrasound of the kidneys and bladder, to rule out structural concerns. I also explained the potential benefits of pharmacological intervention with Mirabegron to help with bladder relaxation. The patient showed understanding and interest in pursuing treatment through medication, appreciating the importance of assessing the ultrasound results to offer a comprehensive diagnosis. Urinary Symptoms Review - Nocturia several times per night, with frequency up to five times on some occasions - Onset of urinary symptoms about a year ago - Daytime frequency of urination noted, occurring four to five times - No history of recent urinary tract infections - No associated dysuria reported - Moderate caffeine intake, consuming one to three cups per day PFSH Medical History Nocturia Pain in right knee Primary insomnia Hyperlipidemia, unspecified Major depressive disorder, recurrent, moderate Type 2 diabetes mellitus without complications Office Procedures Post Void Residual Post Residual Void Post Void Residual (PVR): 4 [id number] Void Residual by ultrasound Results AMB Urinalysis, Automated UA Leukoctes 70 Lnei/uL Last Edit by Felisha Bermudez on 01/11/25 13:57 UA Nitrite Negative Last Edit by Felisha Bermudez on 01/11/25 13:57 UA Urobilinogen 0.2 mg/dL Last Edit by Felisha Bermudez on 01/11/25 13:57 UA Protein 30 mg/dL Last Edit by Felisha Bermudez on 01/11/25 13:57 UA pH 6.0 Last Edit by Felisha Bermudez on 01/11/25 13:57 UA Blood 0 Jan/uL Last Edit by Felisha Bermudez on 01/11/25 13:57 UA Specific [place] 1.015 Last Edit by Felisha Bermudez on 01/11/25 13:57 UA Ketone Positive Last Edit by Felisha Bermudez on 01/11/25 13:57 UA Bilirubin 0 mg/dL Last Edit by Felisha Bermudez on 01/11/25 13:57 UA Glucose 0 mg/dL Last Edit by Felisha Bermudez on 01/11/25 13:57 Assessment & Plan Assessment & Plan (1) Proteinuria: Code(s): R80.9 - Proteinuria, unspecified Category: Medical Orders: Orders AMB Urinalysis Automated Today R35.0 - Frequency of micturition Referrals Nephrology Referral R80.9 - Proteinuria, unspecified Medications: Refilled solifenacin (Vesicare) 10 mg PO DAILY 90 tabs 3RF Coding Diagnoses Proteinuria R80.9 CPT Codes Post Residual Void - PVR CPT Code: 65287-[id number] Void Residual by ultrasound ([id number])
--- OUTSIDE RECORDS SUMMARY | 2025-01-11 12:49 | XMS_ITS | Clinical Summary ---
Author Organization [facility] Address [address] [place] [address] Phone Care Team Providers Care Avionics Technician Name Role Phone Jim Thomas DO Primary Care Provider [phone] Encounters Date Type Department Care Team Description 12/20/2024 8:15 AM EDT - 12/20/2024 11:59 PM EDT [facility] at [address] [address] Encounter for screening mammogram for breast cancer Discharge Disposition: Home or Self Care from Last 3 Months Family History Medical History Relation Name Comments Breast cancer Mother Relation Name Status Comments Mother Social History Tobacco Use Types Packs/Day Years Used Date Smoking Tobacco: Never Assessed Comments No Sex and Gender Information Value Date Recorded Sex Assigned at Not on file Legal Sex Female 6:02 PM EST Gender Identity Not on file Sexual Orientation Not on file Obstetrics History Last Filed Vital Signs Vital Sign Reading Time Taken Comments Blood Pressure - - Pulse - - Temperature - - Respiratory Rate - - Oxygen Saturation - - Inhaled Oxygen Concentration - - Weight 76.7 kg (169 lb) 12/20/2024 8:28 AM EDT Height 149.9 cm (4' 11 ) 12/20/2024 8:28 AM EDT Body Mass Index 34.13 12/20/2024 8:28 AM EDT Plan of Treatment Health Maintenance Due Date Last Done Comments Colorectal Cancer Screening: Colonoscopy 1955 Diabetes: Annual GFR (Glomerular Filtration Rate) 1955 Diabetes: Annual Foot Exam 10/05/1963 Diabetes: Annual Retina Eye Exam 10/05/1963 DTaP,Tdap,and Td Vaccines (1 - Tdap) 1972 Pneumococcal Vaccine: 50+ Years (1 of 2 - PCV) 1972 Falls Risk Assessment 02/24/2022 Hepatitis C Screening 02/24/2022 Medicare Annual Wellness Visit 02/24/2022 Social Influencers of Health Screening 02/24/2022 Depression Screening 03/14/2024 COVID-19 Vaccine ( season) 2024 11/25/2023, 12/08/2022, 01/07/2022, Additional history exists Diabetes: Annual Urine Albumin-Creatinine Ratio (uACR) 12/06/2024 Diabetes: Blood Sugar Control Test (HGBA1C) 06/05/2025 12/06/2024 Breast Cancer Screening 12/20/2026 12/21/19, 08/15/2023, 08/03/2022, Additional history exists Cholesterol Screening (Lipid Panel) 12/06/2029 12/06/2024, 05/07/2024 Osteoporosis Screening (Bone Density Screening) 03/23/2034 03/23/2024, 04/13/2018 Zoster Vaccines Completed 08/15/2020, 02/23/2020 RSV Immunization Adult Patients Completed 03/31/2023 Influenza Vaccine Completed 12/06/2024, , 12/04/2022, Additional history exists HIB Vaccines Aged Out [...] Procedure Name Priority Date/Time Associated Diagnosis Comments MG MAMMO DIGITAL SCREENING W AR BILAT Routine 12/20/2024 8:39 AM EDT Encounter for screening mammogram for breast cancer CBC WITH AUTO DIFFERENTIAL Routine 12/06/2024 8:46 AM EDT Laboratory tests ordered as part of a complete physical exam (CPE) Depression IBS (irritable bowel syndrome) HLD (hyperlipidemia) Acute seasonal allergic rhinitis IGT (impaired glucose tolerance) DM2 (diabetes mellitus, type 2) (CMS/HCC V24, CMS/HCC V28) LLQ pain HEMOGLOBIN A1C Routine 12/06/2024 8:46 AM EDT Laboratory tests ordered as part of a complete physical exam (CPE) Depression IBS (irritable bowel syndrome) HLD (hyperlipidemia) Acute seasonal allergic rhinitis IGT (impaired glucose tolerance) DM2 (diabetes mellitus, type 2) (CMS/HCC V24, CMS/HCC V28) LLQ pain CBC AND DIFFERENTIAL Routine 12/06/2024 8:46 AM EDT Laboratory tests ordered as part of a complete physical exam (CPE) Depression IBS (irritable bowel syndrome) HLD (hyperlipidemia) Acute seasonal allergic rhinitis IGT (impaired glucose tolerance) DM2 (diabetes mellitus, type 2) (CMS/HCC V24, CMS/HCC V28) LLQ pain THYROID STIMULATING HORMONE Routine 12/06/2024 8:46 AM EDT Laboratory tests ordered as part of a complete physical exam (CPE) Depression IBS (irritable bowel syndrome) HLD (hyperlipidemia) Acute seasonal allergic rhinitis IGT (impaired glucose tolerance) DM2 (diabetes mellitus, type 2) (CMS/HCC V24, CMS/HCC V28) LLQ pain ASPARTATE AMINOTRANSFERASE Routine 12/06/2024 8:46 AM EDT Laboratory tests ordered as part of a complete physical exam (CPE) Depression IBS (irritable bowel syndrome) HLD (hyperlipidemia) Acute seasonal allergic rhinitis IGT (impaired glucose tolerance) DM2 (diabetes mellitus, type 2) (CMS/HCC V24, CMS/[facility] V28) LLQ pain ALANINE AMINOTRANSFERASE Routine 025 8:46 AM EDT Laboratory tests ordered as part of a complete physical exam (CPE) Depression IBS (irritable bowel syndrome) HLD (hyperlipidemia) Acute seasonal allergic rhinitis IGT (impaired glucose tolerance) DM2 (diabetes mellitus, type 2) ([facility] V24, [facility] V28) LLQ pain LIPID PANEL WITH REFLEX TO DIRECT LDL Routine 12/06/2024 8:46 AM EDT Laboratory tests ordered as part of a complete physical exam (CPE) Depression IBS (irritable bowel syndrome) HLD (hyperlipidemia) Acute seasonal allergic rhinitis IGT (impaired glucose tolerance) DM2 (diabetes mellitus, type 2) ([facility] V24, [facility] V28) LLQ pain BD BONE DENSITY DXA AXIAL SKELETON Routine 03/23/2024 8:21 AM EST Post-menopausal from Last 3 Months or Most Recently Relevant to Health Maintenance Results * MG Mammo Digital Screening w Ar bilat (12/20/2024 8:39 AM EDT) Anatomical Region Laterality Modality Breast Bilateral Mammography 12/20/2024 9:11 AM EDT Impressions 12/20/2024 9:16 AM EDT No mammographic evidence of malignancy. No suspicious interval change. A negative mammogram in the presence of a clinically suspicious palpable abnormality does not preclude the possibility of malignancy or alter the indications for biopsy. ASSESSMENT: BI-RADS 1: NEGATIVE RECOMMENDATION(S): 1: Routine screening mammogram BILATERAL in 1 year. [facility] [address], [address] -------- FINAL REPORT -------- Dictated By: Cedric Trevino Dictated Date: 12/20/2024 09:11 ET Assigned Physician: Cedric Trevino Reviewed and Electronically Signed By: Cedric Trevino Signed Date: 12/20/2024 09:16 ET Workstation ID: [id number] Transcribed By: Self Edit Transcribed Date: 12/20/2024 09:11 ET Narrative 12/20/2024 9:16 AM EDT EXAM: SCREENING MAMMOGRAPHY, BILATERAL HISTORY: SCREENING. Mother diagnosed with breast cancer age 65. Technologist indicates decreased range of motion left shoulder COMPARISON: 08/15/23, 08/03/22, 07/15/21, 07/10/20 TECHNIQUE: Synthesized CC and MLO projections of each breast. Tomosynthesis of each breast in the CC and MLO projections. ADDITIONAL IMAGING: None Computer-aided detection was employed with the [employer] AI 3-D. TISSUE DENSITY: There are scattered areas of fibroglandular density. (BI-RADS category B) FINDINGS: RIGHT BREAST: No suspicious mass. No suspicious calcification. No distortion. No additional suspicious right breast findings LEFT BREAST: No suspicious mass. No suspicious calcification. No distortion. No additional suspicious left breast findings Procedure Note Cedric Trevino MD - 12/20/2024 EXAM: SCREENING MAMMOGRAPHY, BILATERAL HISTORY: SCREENING. Mother diagnosed with breast cancer age 65.Technologist indicates decreased range of motion left shoulder COMPARISON: 08/15/23, 08/03/22, 07/15/21, 07/10/20 TECHNIQUE: Synthesized CC and MLO projections of each breast.Tomosynthesis of each breast in the CC and MLO projections. ADDITIONAL IMAGING: None Computer-aided detection was employed with the [employer] AI 3-D. TISSUE DENSITY: There are scattered areas of fibroglandular density.(BI-RADS category B) FINDINGS: RIGHT BREAST: No suspicious mass. No suspicious calcification. No distortion. Noadditional suspicious right breast findings LEFT BREAST: No suspicious mass. No suspicious calcification. No distortion. Noadditional suspicious left breast findings IMPRESSION: No mammographic evidence of malignancy. No suspicious interval change. A negative mammogram in the presence of a clinically suspicious palpableabnormality does not preclude the possibility of malignancy or alter theindications for biopsy. ASSESSMENT: BI-RADS 1: NEGATIVE RECOMMENDATION(S): 1: Routine screening mammogram BILATERAL in 1 year. [facility] location[facility] [address], [address] -------- FINAL REPORT -------- Dictated By: Cedric Trevino Dictated Date: 12/20/2024 09:11 ET Assigned Physician: Cedric Trevino Reviewed and Electronically Signed By: Cedric Trevino Signed Date: 12/20/2024 09:16 ET Workstation ID: [id number] Transcribed By: Self Edit Transcribed Date: 12/20/2024 09:11 ET us Self Referral Sppl IMG BI PROCEDURES Final Resul t * (ABNORMAL) Lipid panel with reflex to direct LDL (12/06/2024 8:46 AM EDT) Cholesterol 184 0 - 200 mg/dL LAB CHEMISTRY METHOD 12/06/2024 4:12 PM EDT [facility] Triglycerides 72 0 - 150 mg/dL LAB CHEMISTRY METHOD 12/06/2024 4:12 PM EDT [facility] HDL 54 >=40 mg/dL LAB CHEMISTRY METHOD 12/06/2024 4:12 PM EDT [facility] LDL Calculated 116(H) 0 - 100 mg/dL LAB CHEMISTRY METHOD 12/06/2024 4:12 PM EDT [facility] Comment:Estimated LDL Calcul ated using equation: Total cholesterol - HDL cholesterol - (Triglycerides/5) VLDL Cholesterol [place] 14.4 mg/dL LAB CHEMISTRY METHOD 12/06/2024 4:12 PM EDT [facility] Non HDL Chol. (LDL+VLDL) 130 <145 mg/dL LAB CHEMISTRY METHOD 12/06/2024 4:12 PM EDT [facility] Chol/HDL Ratio 3.4 0.0 - 4.4 LAB CHEMISTRY METHOD 12/06/2024 4:12 PM EDT [facility] Blood Venous blood specimen / Unknown Venipuncture / Unknown 12/06/2024 8:46 AM EDT 12/06/2024 8:46 AM EDT Ed Waterman LAB BLOOD ORDERABLES Final Resul t [facility] [address] [place] [address], * (ABNORMAL) CBC auto differential (12/06/2024 8:46 AM EDT) WBC 4.5(L) 4.8 - 10.8 K/mcL LAB HEMETOLOGY METHOD 12/06/2024 11:35 AM EDT [facility] RBC 4.00 3.80 - 4.80 M/mcL LAB HEMETOLOGY METHOD 12/06/2024 11:35 AM EDT [facility] Hemoglobin 12.9 11.5 - 16.0 g/dL LAB HEMETOLOGY METHOD 12/06/2024 11:35 AM EDT [facility] Hematocrit 39.9 35.0 - 47.0 % LAB HEMETOLOGY METHOD 12/06/2024 11:35 AM EDT [facility] MCV 98.8(H) 79.0 - 98.0 FL LAB HEMETOLOGY METHOD 12/06/2024 11:35 AM EDT [facility] MCH 31.9 27.0 - 32.0 pcg LAB HEMETOLOGY METHOD 12/06/2024 11:35 AM EDT [facility] MCHC 32.3 32.0 - 37.0 g/dL LAB HEMETOLOGY METHOD 12/06/2024 11:35 AM EDT [facility] RDW 12.9 11.0 - 15.0 % LAB HEMETOLOGY METHOD 12/06/2024 11:35 AM EDT [facility] Platelets 221 130 - 400 K/mcL LAB HEMETOLOGY METHOD 12/06/2024 11:35 AM EDT [facility] MPV 11.7(H) 7.0 - 11.0 FL LAB HEMETOLOGY METHOD 12/06/2024 11:35 AM EDT [facility] NRBC 0.0 <1.0 % LAB HEMETOLOGY METHOD 12/06/2024 11:35 AM [facility] NRBC Absolute 0.00 <0.10 K/mcL LAB HEMETOLOGY METHOD 12/06/2024 11:35 AM [facility] Neutrophils Relative 46.0 % LAB HEMETOLOGY METHOD 12/06/2024 11:35 AM [facility] Lymphocytes Relative 38.1 % LAB HEMETOLOGY METHOD 12/06/2024 11:35 AM [facility] Monocytes Relative 13.7 % LAB HEMETOLOGY METHOD 12/06/2024 11:35 AM [facility] Eosinophils Relative 1.1 % LAB HEMETOLOGY METHOD 12/06/2024 11:35 AM [facility] Basophils Relative 0.9 % LAB HEMETOLOGY METHOD 12/06/2024 11:35 AM [facility] Immature Granulocytes Relative 0.2 % LAB HEMETOLOGY METHOD 12/06/2024 11:35 AM [facility] Neutrophils Absolute 2.08 1.50 - 7.00 K/mcL LAB HEMETOLOGY METHOD 12/06/2024 11:35 AM [facility] Lymphocytes Absolute 1.72 1.00 - 5.00 K/mcL LAB HEMETOLOGY METHOD 12/06/2024 11:35 AM [facility] Monocytes Absolute 0.62 0.20 - 1.00 K/mcL LAB HEMETOLOGY METHOD 12/06/2024 11:35 AM [facility] Eosinophils Absolute 0.05 0.00 - 0.50 K/mcL LAB HEMETOLOGY METHOD 12/06/2024 11:35 AM [facility] Basophils Absolute 0.04 0.00 - 0.20 K/mcL LAB HEMETOLOGY METHOD 12/06/2024 11:35 AM EDT [facility] Immature Granulocytes Absolute 0.01 0.00 - 0.03 K/mcL LAB HEMETOLOGY METHOD 12/06/2024 11:35 AM EDT [facility] Blood Venous blood specimen / Unknown Venipuncture / Unknown 12/06/2024 8:46 AM EDT 12/06/2024 8:46 AM EDT Ed Marie LAB BLOOD ORDERABLES Final Resul t Performing Organization Address [facility] Co de Phone Number [facility] [address] [place] [address], [place] [phone] * Alanine aminotransferase (12/06/2024 8:46 AM EDT) ALT (SGPT) 28 10 - 60 unit/L LAB CHEMISTRY METHOD 12/06/2024 5:12 PM EDT [facility] Blood Venous blood specimen / Unknown Venipuncture / Unknown 12/06/2024 8:46 AM EDT 12/06/2024 8:46 AM EDT Ed [employer] LAB BLOOD ORDERABLES Final Resul t Performing Organization Address [facility]/ZIP Co de Phone Number [facility] [address] [place] [address], [place] [phone] * Aspartate aminotransferase (12/06/2024 8:46 AM EDT) AST (SGOT) 18 10 - 42 unit/L LAB CHEMISTRY METHOD 12/06/2024 4:09 PM EDT [facility] Blood Venous blood specimen / Unknown Venipuncture / Unknown 12/06/2024 8:46 AM EDT 12/06/2024 8:46 AM EDT Ed [employer] LAB BLOOD ORDERABLES Final Resul t [facility] [address] [place] [address], [place] [phone] * Thyroid stimulating hormone (12/06/2024 8:46 AM EDT) [facility] TSH 3.33 0.40 - 4.00 mcIU/mL LAB CHEMISTRY METHOD 12/06/2024 6:09 PM EDT [facility] Blood Venous blood specimen / Unknown Venipuncture / Unknown 12/06/2024 8:46 AM EDT 12/06/2024 8:46 AM EDT Ed Waterman LAB BLOOD ORDERABLES Final Resul t Performing Organization Address [facility] de Phone Number [facility] [address] [place] [address], [place] [phone] * Hemoglobin A1c (12/06/2024 8:46 AM EDT) [facility] Hemoglobin A1C 5.6 <6.5 % LAB CHEMISTRY METHOD 12/06/2024 2:28 PM EDT [facility] Mean Bld Glu Estim. 114 mg/dL LAB CHEMISTRY METHOD 12/06/2024 2:28 PM EDT [facility] Blood Venous blood specimen / Unknown Venipuncture / Unknown 12/06/2024 8:46 AM EDT 12/06/2024 8:46 AM EDT Ed Waterman LAB BLOOD ORDERABLES Final Resul t Performing Organization Address [facility]/ZIP Co de Phone Number [facility] [address] [place] [address], [place] [phone] * BD Bone Density DXA Axial Skeleton [...] probability of hip fracture of 1.1%. Code 16288 -------- FINAL REPORT -------- Dictated By: Juan Eldridge Dictated Date: 03/23/2024 08:48 ET Assigned Physician: Juan Eldridge Reviewed and Electronically Signed By: Juan Eldridge Signed Date: 03/23/2024 08:53 ET Workstation ID: [id number] Transcribed By: Self Edit Transcribed Date: 03/23/2024 [...] density of the femurs bilaterally is 0.916 gm/rj9ybgiy is 91% of that of young normals [...] probability of hip fracture of 1.1%. Code 74826 -------- FINAL REPORT -------- Dictated By: Juan Eldridge Dictated Date: 03/23/2024 08:48 ET Assigned Physician: Juan Eldridge Reviewed and Electronically Signed By: Juan Eldridge Signed Date: 03/23/2024 08:53 ET Workstation ID: [id number] Transcribed By: Self Edit Transcribed Date: 03/23/2024 08:48 ET Jim Thomas DO [facility] [place] [place] DXA PROCEDURES Final Resu lt from Last 3 Months or Most Recently Relevant to Health Maintenance Insurance [employer] [employer] MEDIC[place]ANTAGE Care Teams Avionics Technician Relationship Specialty Start Date End Date Jim Thomas DO [address] [phone] PCP - General Internal Medicine 02/23/24
--- OUTSIDE RECORDS SUMMARY | 2025-01-11 12:49 | XMS_ITS | Encounter Summary ---
Author Organization [facility] Address [address] [place] [address] Phone Care Team Providers Care Soubrette Name Role Phone Jim Thomas DO Primary Care Provider [phone] Encounter Details Date Type Department Care Team (Late st Contact Info) Description 02/21/2018 Procedure Pass [facility] [address] [place] [address] Social History Tobacco Use Types Packs/Day Years [...] on filedocumented in this encounter Care Teams Soubrette Relationship Specialty Start Date End Date Jim Thomas DO [address] [place] [address] [address] [place] [address] PCP - General Internal Medicine 02/08/18 documented as of this encounter Additional Source Comments The information contained in this document represents components of the legal health record. It is not the complete legal health record.[facility]
--- OUTSIDE RECORDS SUMMARY | 2025-01-11 12:49 | XMS_ITS | Encounter Summary ---
Author Organization [facility] Address [address] [place] [address] Phone Care Team Providers Care Supervisor Pullet Farm Name Role Phone Jim Thomas DO Primary Care Provider [phone] Encounter Details Date Type Department Care Team (Late st Contact Info) Description 02/21/2018 Procedure Pass [facility] [address] [place] [address] Social History Tobacco Use Types Packs/Day Years [...] filedocumented in this encounter Care Teams Supervisor Pullet Farm Relationship Specialty Start Date End Date Jim Thomas DO [address] [place] [address] [address] [place] [address] PCP - General Internal Medicine 02/08/18 documented as of this encounter Additional Source Comments The information contained in this document represents components of the legal health record. It is not the complete legal health record.[facility]
--- OUTSIDE RECORDS SUMMARY | 2025-01-11 12:49 | XMS_ITS | Clinical Summary ---
Author Organization [facility] Address [address] [place] [address] Phone Care Team Providers Care Lithographic Proofer Name Role Phone Jim Thomas DO Primary Care Provider [phone] Allergies Active Allergy Reactions Criticality Noted Date [...] [place] BLUE REPLACEMENT [facility] MEDICARE PPO BLUE REPLACEMENT [facility] MEDICARE PPO BLUE REPLACEMENT [facility] MEDICARE PPO BLUE [place] [address] [address] [place] [address] MEDICARE PPO BLUE REPLACEMENT [facility] MEDICARE PPO BLUE REPLACEMENT [facility] MEDICARE PPO BLUE [place] [address] [address] [place] [address] MEDICARE PPO BLUE REPLACEMENT [facility] MEDICARE PPO BLUE REPLACEMENT [facility] Care Teams Lithographic Proofer Relationship Specialty Start Date End Date Jim Thomas DO [address] [place] [phone] PCP - General Internal Medicine 02/08/18 Additional Source Comments The information contained in this document represents components of the legal health record. It is not the complete legal health record.[facility]
--- OUTSIDE RECORDS SUMMARY | 2025-01-11 12:49 | XMS_ITS | Encounter Summary ---
Author Organization [facility] Address [address] [place] [address] Care Team Providers Care Carbon Sequestration Plant Engineer Name Role Phone Jim Thomas Primary Care Provider [phone] Encounter Details Date Type Department Care Team (Late st Contact Info) Description 05/15/2024 Lab Requisition [facility] - Main Lab [address] [facility] [place] [phone] Ed Waterman [address] [place] [phone] Urinary tract infection, site not specified; [...] reflex microscopic (05/15/2024 3:00 PM EST) Specific [place] Urine 1.025 1.003 - 1.030 LAB URINALYSIS - AUTOMATED METHOD 05/15/2024 9:49 PM [facility] pH, Urine 6.0 5.0 - 8.0 pH LAB URINALYSIS - AUTOMATED METHOD 05/15/2024 9:49 PM [facility] Leukocytes, Urine Small(A) Negative LAB URINALYSIS - AUTOMATED METHOD 05/15/2024 9:49 PM [facility] Nitrite, Urine Negative Negative LAB URINALYSIS - AUTOMATED METHOD 05/15/2024 9:49 PM [facility] Protein, Urine Negative <=Trace mg/dL LAB URINALYSIS - AUTOMATED METHOD 05/15/2024 9:49 PM [facility] Glucose, Urine Negative Negative mg/dL LAB URINALYSIS - AUTOMATED METHOD 05/15/2024 9:49 PM [facility] Ketones, Urine Negative Negative mg/dL LAB URINALYSIS - AUTOMATED METHOD 05/15/2024 9:49 PM [facility] Urobilinogen , Urine 0.2 0.2 - 1.0 mg/dL LAB URINALYSIS - AUTOMATED METHOD 05/15/2024 9:49 PM [facility] Bilirubin, Urine Negative Negative LAB URINALYSIS - AUTOMATED METHOD 05/15/2024 9:49 PM [facility] Blood, Urine Negative Negative LAB URINALYSIS - AUTOMATED METHOD 05/15/2024 9:49 PM [facility] RBC, Urine 1 0 - 4 /HPF 05/15/2024 9:49 PM [facility] WBC, Urine 3 0 - 4 /HPF 05/15/2024 9:49 PM [facility] Squamous Epithelial, Urine 50 0 - 60 /LPF 05/15/2024 9:49 PM EST [facility] Non-Squamous Epithelial, Urine 2-5 Transitional epithelial cells. /LPF 05/15/2024 9:49 PM [facility] Crystals, Urine Moderate Amorphous Urate crystals. /LPF 05/15/2024 9:49 PM EST [facility] Bacteria, Urine Negative Negative /HPF 05/15/2024 9:49 PM [facility] Hyaline Casts, Urine 1 0 - 3 /LPF 05/15/2024 9:49 PM [facility] Mucus, Urine Trace(A) None /HPF 05/15/2024 9:49 PM [facility] Urine Urine specimen obtained by clean catch procedure / Unknown 05/15/2024 3:00 PM EST 05/15/2024 7:24 PM EST Narrative [facility] - 05/15/2024 9:49 PM EST QNS to spin,urine sediment done on un-spun urine. [facility] LAB URINE ORDERABLES Final Resul t [facility] [address] [place] [address], [place] [phone] * Culture urine (05/15/2024 3:00 PM EST) Culture, Urine 10,000-49,000 CFU/mL Mixed urogenital esther, no uropathogens present. Suggest repeat specimen if clinically indicated. 05/16/2024 2:30 PM EST [facility] Urine Urine specimen obtained by clean catch procedure / Unknown 05/15/2024 3:00 PM EST 05/15/2024 7:24 PM EST [email or web address] LAB MICROBIOLOGY - GENERAL ORDER JENNIFER Final Result [facility] [address] [place] [address], documented in this encounter Visit Diagnoses Diagnosis Urinary tract infection, site not specified Hematuria, unspecified documented in this encounter Care Teams Carbon Sequestration Plant Engineer Relationship Specialty Start Date End Date Jim Thomas DO [address] [place] [phone] PCP - General Internal Medicine 02/23/24 documented as of this encounter
--- OUTSIDE RECORDS SUMMARY | 2025-01-11 12:49 | XMS_ITS | Encounter Summary ---
Author Organization [facility] Address [address] [place] [address] Phone Care Team Providers Care Salvage Inspector Wood Parts Name Role Phone Jim Thomas DO Primary Care Provider [phone] Encounter Details Date Type Department Care Team (Late st Contact Info) Description 02/21/2018 Procedure Pass [facility] [address] [place] [address] Social History Tobacco Use Types Packs/Day Years [...] on filedocumented in this encounter Care Teams Salvage Inspector Wood Parts Relationship Specialty Start Date End Date Jim Thomas DO [address] [place] [address] [address] [place] [address] PCP - General Internal Medicine 02/08/18 documented as of this encounter Additional Source Comments The information contained in this document represents components of the legal health record. It is not the complete legal health record.[facility]
== END 2025-01-11 12:08 | disposition home or self-care (01) ==
LOC: HO.HUSH 11:15
PROVIDERS: PCP Internal Medicine; Visit Provider Urology
DX: R35.0 Frequency of micturition (principal)

== ENCOUNTER → 2025-01-11 11:14 | Outpatient (BNVA) | payer MEDICARE, SELFPAY | PROVIDERS: PCP Internal Medicine; Visit Provider Urology | DX: R35.1 Nocturia (principal); R31.29 Other microscopic hematuria; R35.0 Frequency of micturition; N32.81 Overactive bladder; R80.9 Proteinuria, unspecified | CPT/HCPCS: 51798; 81003; 99212 ==

== ENCOUNTER 2025-01-25 11:32 | Outpatient (AMB) | payer MEDICARE, SELFPAY ==
--- NOTE | 2025-01-25 11:49 | HO.NEPHOV_ITS ---
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 She has been seen in followed up closely by our urology colleagues for overactive bladder. At the time she was found to have some proteinuria. She is not a known diabetic or hypertensive. She does not have any recurrent sinusitis, sore throat, skin rashes, hematuria, hearing loss, photosensitivity. She does not take excessive nonsteroidal anti-inflammatories. She has no new bone or back pain. Her serum calcium, to her knowledge , has been normal. She has no edema and did not have any specific systemic complaints at the time this office visit. [facility] Medical History (Updated 01/25/25 @ 13:27 by Levar Hough MD) Nocturia Pain in right knee Primary insomnia Hyperlipidemia, unspecified Major depressive disorder, recurrent, moderate Type 2 diabetes mellitus without complications Surgical History History of carpal tunnel surgery Family History (Updated 01/25/25 @ 11:50 by Mary Rdz MA) Mother Diabetes mellitus Hypertension Brother Hypertension Diabetes mellitus Social History (Updated 01/25/25 @ 11:50 by Mary Rdz MA) Alcohol intake: current Patient Tobacco Use Status: Never used Tobacco Review of Systems Const All systems reviewed & are unremarkable except as noted in HPI and below Physical Exam Vital Signs: Last Vital Signs Pulse 80 01/25/25 11:52 BP 136/70 01/25/25 11:52 Pulse Ox 96 01/25/25 11:52 Oxygen Delivery Method Room Air 01/25/25 11:52 BMI result Body Mass Index 34.2 Const General: comfortable and no acute distress Orientation/consciousness: patient oriented x3 HEENT Head: Yes normocephalic Mouth: Normal oral and palatal mucosa present Eyes EOM: EOMs intact bilaterally Neck Neck: Yes supple Resp Auscultation: clear to auscultation bilaterally Cardio Jugular venous distension: no JVD Rate: regular rate GI Palpation (GI): Soft to palpation Auscultation: normal bowel sounds General: Yes no CVA tenderness Back/Spine/Pelvis Back: no CVA tenderness Skin General skin exam: no rashes or lesions noted Neuro General: patient oriented x3 and moves all extremities Extrem General: Yes no pedal edema Assessment & Plan Assessment & Plan (1) Proteinuria: Code(s): R80.9 - Proteinuria, unspecified Category: Medical Qualifiers: Proteinuria type: unspecified Qualified Code(s): R80.9 - Proteinuria, unspecified Plan Ann was found to have incidental proteinuria when she was being seen and investigated for overactive bladder. She is not a diabetic or hypertensive. Her blood pressure was marginally about goal at this office visit. She had a renal ultrasound in the past which has been normal. I ordered the 24 hour urine for protein along with blood work. I did not make any medication changes today but discussed all the possibilities, investigations and further management strategies. Answered all all questions and follow-up appointment was given. Orders: Orders Protein Creatinine Ratio, Ur 3 Weeks R80.9 - Proteinuria, unspecified Immunofixation Pnl, Serum 3 Weeks R80.9 - Proteinuria, unspecified Electrolytes 2 Weeks R80.9 - Proteinuria, unspecified Immunofixation, Random Urine 3 Weeks R80.9 - Proteinuria, unspecified Protein, 24 Hr Urine Group 3 Weeks R80.9 - Proteinuria, unspecified Blood Urea Nitrogen 2 Weeks R80.9 - Proteinuria, unspecified Creatinine 2 Weeks R80.9 - Proteinuria, unspecified Coding Level of Care Code New Pt Level 4 (21489) Diagnoses Proteinuria, unspecified type R80.9 Proteinuria type: unspecified
[2025-01-25 11:52] VITALS: BP 136/70; PULSE 80; O2SAT 96; BMI 34.2
--- OUTSIDE RECORDS SUMMARY | 2025-01-25 17:46 | XMS_ITS | Encounter Summary ---
Author Organization [facility] Address [address] [place] [address] Phone Care Team Providers Care Tick Eradicator Name Role Phone Jim Thomas DO Primary Care Provider [phone] Encounter Details Date Type Department Care Team (Late st Contact Info) Description 02/21/2018 Procedure Pass [facility] [address] [place] [address] Social History Tobacco Use Types Packs/Day Years [...] on filedocumented in this encounter Care Teams Tick Eradicator Relationship Specialty Start Date End Date Jim Thomas DO [address] [place] [address] [address] [place] [address] PCP - General Internal Medicine 02/08/18 documented as of this encounter Additional Source Comments The information contained in this document represents components of the legal health record. It is not the complete legal health record.[facility]
--- OUTSIDE RECORDS SUMMARY | 2025-01-25 17:47 | XMS_ITS | Clinical Summary ---
Author Organization [facility] Address [address] [place] [address] Phone Care Team Providers Care Cigarette Making Examiner Name Role Phone Jim Thomas DO Primary Care Provider [phone] Encounters Date Type Department Care Team Description 12/20/2024 8:15 AM EDT - 12/20/2024 11:59 PM EDT Hospital [facility] [address] [address] Encounter for screening mammogram for [...] DM2 (diabetes mellitus, type 2) (CMS/HCC V24, CMS/[facility] V28) LLQ pain ALANINE AMINOTRANSFERASE Routine 025 8:46 AM EDT Laboratory tests ordered as part of a complete physical exam (CPE) Depression IBS (irritable bowel syndrome) HLD (hyperlipidemia) Acute seasonal allergic rhinitis IGT (impaired glucose tolerance) DM2 (diabetes mellitus, type 2) ([facility] V24, [facility] V28) LLQ pain LIPID PANEL WITH REFLEX TO DIRECT LDL Routine 12/06/2024 8:46 AM EDT Laboratory tests ordered as part of a complete physical exam (CPE) Depression IBS (irritable bowel syndrome) HLD (hyperlipidemia) Acute seasonal allergic rhinitis IGT (impaired glucose tolerance) DM2 (diabetes mellitus, type 2) ([facility] V24, [facility] V28) LLQ pain BD BONE DENSITY DXA [...] year. Mammography location: [facility] at [address], [address] -------- FINAL REPORT -------- Dictated By: Cedric Trevino Dictated Date: 12/20/2024 09:11 ET Assigned Physician: Cedric Trevino Reviewed and Electronically Signed By: Cedric Trevino Signed Date: 12/20/2024 09:16 ET Workstation ID: [id number] Transcribed By: Self Edit Transcribed Date: 12/20/2024 [...] None Computer-aided detection was employed with the [employer] AI 3-D. TISSUE DENSITY: There are scattered [...] None Computer-aided detection was employed with the [employer] AI 3-D. TISSUE DENSITY: There are [...] year. Mammography location: [facility] at [address], [address] -------- FINAL REPORT -------- Dictated By: Cedric Trevino Dictated Date: 12/20/2024 09:11 ET Assigned Physician: Cedric Trevino Reviewed and Electronically Signed By: Cedric Trevino Signed Date: 12/20/2024 09:16 ET Workstation ID: [id number] Transcribed By: Self Edit Transcribed Date: 12/20/2024 09:11 ET us Self Referral Sppl IMG BI PROCEDURES Final Resul t * (ABNORMAL) Lipid panel with reflex to direct LDL (12/06/2024 8:46 AM EDT) Cholesterol 184 0 - 200 mg/dL LAB CHEMISTRY METHOD 12/06/2024 4:12 PM EDT [facility] Triglycerides 72 0 - 150 mg/dL LAB CHEMISTRY METHOD 12/06/2024 4:12 PM EDT [facility] HDL 54 >=40 mg/dL LAB CHEMISTRY METHOD 12/06/2024 4:12 PM EDT [facility] LDL Calculated 116(H) 0 - 100 mg/dL LAB CHEMISTRY METHOD 12/06/2024 4:12 PM EDT [facility] Comment:Estimated LDL Calcul ated using equation: Total cholesterol - HDL cholesterol - (Triglycerides/5) VLDL Cholesterol [place] 14.4 mg/dL LAB CHEMISTRY METHOD 12/06/2024 4:12 PM EDT [facility] Non HDL Chol. (LDL+VLDL) 130 <145 mg/dL LAB CHEMISTRY METHOD 12/06/2024 4:12 PM EDT [facility] Chol/HDL Ratio 3.4 0.0 - 4.4 LAB CHEMISTRY METHOD 12/06/2024 4:12 PM EDT [facility] Blood Venous blood specimen / Unknown Venipuncture / Unknown 12/06/2024 8:46 AM EDT 12/06/2024 8:46 AM EDT Ed Waterman LAB BLOOD ORDERABLES Final Resul t [facility] [address] [place] [address], * (ABNORMAL) CBC auto differential (12/06/2024 8:46 AM EDT) WBC 4.5(L) 4.8 - 10.8 K/mcL LAB HEMETOLOGY METHOD 12/06/2024 11:35 AM EDT [facility] RBC 4.00 3.80 - 4.80 M/mcL LAB HEMETOLOGY METHOD 12/06/2024 11:35 AM EDT [facility] Hemoglobin 12.9 11.5 - 16.0 g/dL LAB HEMETOLOGY METHOD 12/06/2024 11:35 AM EDT [facility] Hematocrit 39.9 35.0 - 47.0 % LAB HEMETOLOGY METHOD 12/06/2024 11:35 AM EDT [facility] MCV 98.8(H) 79.0 - 98.0 FL LAB HEMETOLOGY METHOD 12/06/2024 11:35 AM EDT [facility] MCH 31.9 27.0 - 32.0 pcg LAB HEMETOLOGY METHOD 12/06/2024 11:35 AM EDT [facility] MCHC 32.3 32.0 - 37.0 g/dL LAB HEMETOLOGY METHOD 12/06/2024 11:35 AM EDT [facility] RDW 12.9 11.0 - 15.0 % LAB HEMETOLOGY METHOD 12/06/2024 11:35 AM EDT [facility] Platelets 221 130 - 400 K/mcL LAB HEMETOLOGY METHOD 12/06/2024 11:35 AM EDT [facility] MPV 11.7(H) 7.0 - 11.0 FL LAB HEMETOLOGY METHOD 12/06/2024 11:35 AM EDT [facility] NRBC 0.0 <1.0 % LAB HEMETOLOGY METHOD 12/06/2024 11:35 AM [facility] NRBC Absolute 0.00 <0.10 K/mcL LAB HEMETOLOGY METHOD 12/06/2024 11:35 AM [facility] Neutrophils Relative 46.0 % LAB HEMETOLOGY METHOD 12/06/2024 11:35 AM [facility] Lymphocytes Relative 38.1 % LAB HEMETOLOGY METHOD 12/06/2024 11:35 AM [facility] Monocytes Relative 13.7 % LAB HEMETOLOGY METHOD 12/06/2024 11:35 AM [facility] Eosinophils Relative 1.1 % LAB HEMETOLOGY METHOD 12/06/2024 11:35 AM [facility] Basophils Relative 0.9 % LAB HEMETOLOGY METHOD 12/06/2024 11:35 AM [facility] Immature Granulocytes Relative 0.2 % LAB HEMETOLOGY METHOD 12/06/2024 11:35 AM [facility] Neutrophils Absolute 2.08 1.50 - 7.00 K/mcL LAB HEMETOLOGY METHOD 12/06/2024 11:35 AM [facility] Lymphocytes Absolute 1.72 1.00 - 5.00 K/mcL LAB HEMETOLOGY METHOD 12/06/2024 11:35 AM [facility] Monocytes Absolute 0.62 0.20 - 1.00 K/mcL LAB HEMETOLOGY METHOD 12/06/2024 11:35 AM [facility] Eosinophils Absolute 0.05 0.00 - 0.50 K/mcL LAB HEMETOLOGY METHOD 12/06/2024 11:35 AM [facility] Basophils Absolute 0.04 0.00 - 0.20 K/mcL LAB HEMETOLOGY METHOD 12/06/2024 11:35 AM EDT [facility] Immature Granulocytes Absolute 0.01 0.00 - 0.03 K/mcL LAB HEMETOLOGY METHOD 12/06/2024 11:35 AM EDT [facility] Blood Venous blood specimen / Unknown Venipuncture / Unknown 12/06/2024 8:46 AM EDT 12/06/2024 8:46 AM EDT Ed Marie LAB BLOOD ORDERABLES Final Resul t Performing Organization Address [facility] Co de Phone Number [facility] [address] [place] [address], [place] [phone] * Alanine aminotransferase (12/06/2024 8:46 AM EDT) ALT (SGPT) 28 10 - 60 unit/L LAB CHEMISTRY METHOD 12/06/2024 5:12 PM EDT [facility] Blood Venous blood specimen / Unknown Venipuncture / Unknown 12/06/2024 8:46 AM EDT 12/06/2024 8:46 AM EDT Ed Mariek[employer]American [employer] LAB BLOOD ORDERABLES Final Resul t Performing Organization Address [facility]/ZIP Co de Phone Number [facility] [address] [place] [address], [place] [phone] * Aspartate aminotransferase (12/06/2024 8:46 AM EDT) AST (SGOT) 18 10 - 42 unit/L LAB CHEMISTRY METHOD 12/06/2024 4:09 PM EDT [facility] Blood Venous blood specimen / Unknown Venipuncture / Unknown 12/06/2024 8:46 AM EDT 12/06/2024 8:46 AM EDT Ed [employer] LAB BLOOD ORDERABLES Final Resul t [facility] [address] [place] [address], [place] [phone] * Thyroid stimulating hormone (12/06/2024 8:46 AM EDT) [facility] TSH 3.33 0.40 - 4.00 mcIU/mL LAB CHEMISTRY METHOD 12/06/2024 6:09 PM EDT [facility] Blood Venous blood specimen / Unknown Venipuncture / Unknown 12/06/2024 8:46 AM EDT 12/06/2024 8:46 AM EDT Ed Waterman LAB BLOOD ORDERABLES Final Resul t Performing Organization Address [facility] de Phone Number [facility] [address] [place] [address], [place] [phone] * Hemoglobin A1c (12/06/2024 8:46 AM EDT) [facility] Hemoglobin A1C 5.6 <6.5 % LAB CHEMISTRY METHOD 12/06/2024 2:28 PM EDT [facility] Mean Bld Glu Estim. 114 mg/dL LAB CHEMISTRY METHOD 12/06/2024 2:28 PM EDT [facility] Blood Venous blood specimen / Unknown Venipuncture / Unknown 12/06/2024 8:46 AM EDT 12/06/2024 8:46 AM EDT Ed Waterman LAB BLOOD ORDERABLES Final Resul t Performing Organization Address [facility]/ZIP Co de Phone Number [facility] [address] [place] [address], [place] [phone] * BD Bone Density DXA Axial Skeleton [...] probability of hip fracture of 1.1%. Code 79357 -------- FINAL REPORT -------- Dictated By: Juan Eldridge Dictated Date: 03/23/2024 08:48 ET Assigned Physician: Juan Eldridge Reviewed and Electronically Signed By: Juan Eldridge Signed Date: 03/23/2024 08:53 ET Workstation ID: [id number] Transcribed By: Self Edit Transcribed Date: 03/23/2024 [...] density of the femurs bilaterally is 0.916 gm/xx1zxrog is 91% of that of young normals [...] probability of hip fracture of 1.1%. Code 67005 -------- FINAL REPORT -------- Dictated By: Juan Eldridge Dictated Date: 03/23/2024 08:48 ET Assigned Physician: Juan Eldridge Reviewed and Electronically Signed By: Juan Eldridge Signed Date: 03/23/2024 08:53 ET Workstation ID: [id number] Transcribed By: Self Edit Transcribed Date: 03/23/2024 08:48 ET Jim Thomas DO [facility] DXA PROCEDURES Final Resu lt from Last 3 Months or Most Recently Relevant to Health Maintenance Insurance [employer] - [place] MEDICARE ADVANTAGE Care Teams Cigarette Making Examiner Relationship Specialty Start Date End Date Jim Thomas DO [address] [place] [phone] PCP - General Internal Medicine 02/23/24
--- OUTSIDE RECORDS SUMMARY | 2025-01-25 17:47 | XMS_ITS | Encounter Summary ---
Author Organization [facility] Address [address] [place] [address] Care Team Providers Care Washer Meat Name Role Phone Jim Thomas Primary Care Provider [phone] Encounter Details Date Type Department Care Team (Late st Contact Info) Description 05/15/2024 Lab Requisition [facility] - Main Lab [address] [facility] [place] [phone] Ed Waterman [address] [place] [phone] Urinary tract infection, site not specified; [...] reflex microscopic (05/15/2024 3:00 PM EST) Specific [place] Urine 1.025 1.003 - 1.030 LAB URINALYSIS [...] - 60 /LPF 05/15/2024 9:49 PM EST [facility] Non-Squamous Epithelial, Urine 2-5 Transitional epithelial cells. /LPF 05/15/2024 9:49 PM [facility] Crystals, Urine Moderate Amorphous Urate crystals. /LPF 05/15/2024 9:49 PM EST [facility] Bacteria, Urine Negative Negative /HPF 05/15/2024 9:49 PM [facility] Hyaline Casts, Urine 1 0 - 3 /LPF 05/15/2024 9:49 PM [facility] Mucus, Urine Trace(A) None /HPF 05/15/2024 9:49 PM [facility] Urine Urine specimen obtained by clean catch procedure / Unknown 05/15/2024 3:00 PM EST 05/15/2024 7:24 PM EST Narrative [facility] - 05/15/2024 9:49 PM EST QNS to spin,urine sediment done on un-spun urine. [facility] LAB URINE ORDERABLES Final Resul t [facility] [address] [place] [address], [place] [phone] * Culture urine (05/15/2024 3:00 PM EST) Culture, Urine 10,000-49,000 CFU/mL Mixed urogenital esther, no uropathogens present. Suggest repeat specimen if clinically indicated. 05/16/2024 2:30 PM EST [facility] Urine Urine specimen obtained by clean catch procedure / Unknown 05/15/2024 3:00 PM EST 05/15/2024 7:24 PM EST [facility] MICROBIOLOGY - GENERAL ORDER JENNIFER Final Result [facility] [address] [place] [address], documented in this encounter Visit Diagnoses Diagnosis Urinary tract infection, site not specified Hematuria, unspecified documented in this encounter Care Teams Washer Meat Relationship Specialty Start Date End Date Jim Thomas DO [address] [place] [phone] PCP - General Internal Medicine 02/23/24 documented as of this encounter
--- OUTSIDE RECORDS SUMMARY | 2025-01-25 17:48 | XMS_ITS | Clinical Summary ---
Author Organization [facility] Address [address] [facility] [address] [place] [address] Phone Care Team Providers Care Senior Application Security Consultant Name Role Phone Jim Thomas DO Primary Care Provider [phone] Allergies Active Allergy Reactions Criticality Noted Date [...] patient's age to complete this topic IPV VACCINES Aged Out No longer eligi ble based on patient's age to complete this topic MENINGOCOCCAL VACCINES (ACWY) Aged Out No longer eligible based on patient's age to complete this topic MENINGOCOCCAL VACCINES (B) Aged Out N o longer eligible based on patient's age to complete this topic Medical Devices Not on file Insurance [employer] MEDICARE PPO BLUE REPLACEMENT [facility] MEDICARE PPO BLUE REPLACEMENT [facility] MEDICARE PPO BLUE REPLACEMENT [facility] MEDICARE PPO BLUE [address] [address] [place] [address] MEDICARE PPO BLUE REPLACEMENT [facility] MEDICARE PPO BLUE REPLACEMENT [facility] MEDICARE PPO BLUE REPLACEMENT [facility] MEDICARE PPO BLUE REPLACEMENT [facility] MEDICARE PPO BLUE REPLACEMENT [facility] Care Teams Senior Application Security Consultant Relationship Specialty Start Date End Date Jim Thomas DO [address] [place] [address] PCP - General Internal Medicine 02/08/18 Additional Source Comments The information contained in this document represents components of the legal health record. It is not the complete legal health record.[facility]
--- OUTSIDE RECORDS SUMMARY | 2025-01-25 17:48 | XMS_ITS | Encounter Summary ---
Author Organization [facility] Address [address] [place] [address] Phone Care Team Providers Care Shank Sorter Name Role Phone Jim Thomas DO Primary Care Provider [phone] Encounter Details Date Type Department Care Team (Late st Contact Info) Description 02/21/2018 Procedure Pass [facility] [address] [place] [address] Social History Tobacco Use Types Packs/Day Years [...] on filedocumented in this encounter Care Teams Shank Sorter Relationship Specialty Start Date End Date Jim Thomas DO [address] [place] [address] [address] [place] [address] PCP - General Internal Medicine 02/08/18 documented as of this encounter Additional Source Comments The information contained in this document represents components of the legal health record. It is not the complete legal health record.[facility]
--- OUTSIDE RECORDS SUMMARY | 2025-01-25 17:48 | XMS_ITS | Encounter Summary ---
Author Organization [facility] Address [address] [place] [address] Phone Care Team Providers Care Electric Organ Inspector And Repairer Name Role Phone Jim Thomas DO Primary Care Provider [phone] Encounter Details Date Type Department Care Team (Late st Contact Info) Description 02/21/2018 Procedure Pass [facility] [address] [place] [address] Social History Tobacco Use Types Packs/Day Years [...] on filedocumented in this encounter Care Teams Electric Organ Inspector And Repairer Relationship Specialty Start Date End Date Jim Thomas DO [address] [place] [address] [address] [place] [address] PCP - General Internal Medicine 02/08/18 documented as of this encounter Additional Source Comments The information contained in this document represents components of the legal health record. It is not the complete legal health record.[facility]
== END 2025-01-25 12:15 | disposition home or self-care (01) ==
LOC: HO.HKA 11:32
PROVIDERS: PCP Internal Medicine; Referring Provider Urology; Visit Provider Internal Medicine Nephrology
DX: R80.9 Proteinuria, unspecified (principal)
CPT/HCPCS: 99204

== ENCOUNTER → 2025-01-25 11:32 | Outpatient (BNVA) | payer MEDICARE, SELFPAY | PROVIDERS: PCP Internal Medicine; Referring Provider Urology; Visit Provider Internal Medicine Nephrology | DX: R80.9 Proteinuria, unspecified (principal) | CPT/HCPCS: 99202 ==

== ENCOUNTER 2025-01-28 12:11 | Outpatient (REF) | payer MEDICARE, SELFPAY ==
[2025-01-28 14:08] LABS: Anion Gap 14 (12-20); Blood Urea Nitrogen 28 mg/dL (9-16); Carbon Dioxide 22 mmol/L (22-29); Chloride 107 mmol/L (96-108); Estimated Glomerular Filt Rate > 60; Potassium 4.0 mmol/L (3.3-5.1); Sodium 139 mmol/L (135-145)
[2025-01-28 14:26] LABS: Protein/Creatinine Ratio, Ur 0.08 (<0.2); Total Protein Urine Random 8 mg/dL (<12)
[2025-01-28 14:29] LABS: Creatinine, mg/dL 38.82
[2025-01-28 14:56] LABS: Total Volume 24 Hour Urine 2275 mL
--- OUTSIDE RECORDS SUMMARY | 2025-01-29 00:44 | XMS_ITS | Encounter Summary ---
Author Organization [facility] Address [address] [place] [address] Phone Care Team Providers Care Security Program Manager Name Role Phone Jim Thomas DO Primary Care Provider [phone] Encounter Details Date Type Department Care Team (Late st Contact Info) Description 02/21/2018 Procedure Pass [facility] [address] [place] [address] Social History Tobacco Use Types Packs/Day Years [...] on filedocumented in this encounter Care Teams Security Program Manager Relationship Specialty Start Date End Date Jim Thomas DO [address] [place] [address] [address] [place] [address] PCP - General Internal Medicine 02/08/18 documented as of this encounter Additional Source Comments The information contained in this document represents components of the legal health record. It is not the complete legal health record.[facility]
--- OUTSIDE RECORDS SUMMARY | 2025-01-29 00:45 | XMS_ITS | Encounter Summary ---
Author Organization [facility] Address [address] [place] [address] Care Team Providers Care Assisted Living Director Name Role Phone Jim Thomas Primary Care Provider [phone] Encounter Details Date Type Department Care Team (Late st Contact Info) Description 05/15/2024 Lab Requisition [facility] - Main Lab [address] [facility] [place] [phone] Ed Waterman [address] [place] [phone] Urinary tract infection, site not specified; [...] reflex microscopic (05/15/2024 3:00 PM EST) Specific [place] Urine 1.025 1.003 - 1.030 LAB URINALYSIS [...] - 60 /LPF 05/15/2024 9:49 PM EST [facility] Non-Squamous Epithelial, Urine 2-5 Transitional epithelial cells. /LPF 05/15/2024 9:49 PM [facility] Crystals, Urine Moderate Amorphous Urate crystals. /LPF 05/15/2024 9:49 PM EST [facility] Bacteria, Urine Negative Negative /HPF 05/15/2024 9:49 PM [facility] Hyaline Casts, Urine 1 0 - 3 /LPF 05/15/2024 9:49 PM [facility] Mucus, Urine Trace(A) None /HPF 05/15/2024 9:49 PM [facility] Urine Urine specimen obtained by clean catch procedure / Unknown 05/15/2024 3:00 PM EST 05/15/2024 7:24 PM EST Narrative [facility] - 05/15/2024 9:49 PM EST QNS to spin,urine sediment done on un-spun urine. [employer] LAB URINE ORDERABLES Final Resul t [facility] [address] [place] [address], [place] [phone] * Culture urine (05/15/2024 3:00 PM EST) Culture, Urine 10,000-49,000 CFU/mL Mixed urogenital esther, no uropathogens present. Suggest repeat specimen if clinically indicated. 05/16/2024 2:30 PM EST [facility] Urine Urine specimen obtained by clean catch procedure / Unknown 05/15/2024 3:00 PM EST 05/15/2024 7:24 PM EST [employer] [facility] MICROBIOLOGY - GENERAL ORDER JENNIFER Final Result [facility] [address] [place] [address], documented in this encounter Visit Diagnoses Diagnosis Urinary tract infection, site not specified Hematuria, unspecified documented in this encounter Care Teams Assisted Living Director Relationship Specialty Start Date End Date Jim Thomas DO [address] [place] [phone] PCP - General Internal Medicine 02/23/24 documented as of this encounter
--- OUTSIDE RECORDS SUMMARY | 2025-01-29 00:45 | XMS_ITS | Clinical Summary ---
Author Organization [facility] Address [address] [place] [address] Phone Care Team Providers Care Farmworker Livestock Name Role Phone Jim Thomas DO Primary Care Provider [phone] Encounters Date Type Department Care Team Description 12/20/2024 8:15 AM EDT - 12/20/2024 11:59 PM EDT Hospital En[facility] at [address] [phone] Encounter for screening mammogram for [...] DM2 (diabetes mellitus, type 2) (CMS/HCC V24, CMS/[facility] V28) LLQ pain ALANINE AMINOTRANSFERASE Routine 025 8:46 AM EDT Laboratory tests ordered as part of a complete physical exam (CPE) Depression IBS (irritable bowel syndrome) HLD (hyperlipidemia) Acute seasonal allergic rhinitis IGT (impaired glucose tolerance) DM2 (diabetes mellitus, type 2) ([facility] V24, [facility] V28) LLQ pain LIPID PANEL WITH REFLEX TO DIRECT LDL Routine 12/06/2024 8:46 AM EDT Laboratory tests ordered as part of a complete physical exam (CPE) Depression IBS (irritable bowel syndrome) HLD (hyperlipidemia) Acute seasonal allergic rhinitis IGT (impaired glucose tolerance) DM2 (diabetes mellitus, type 2) ([facility] V24, [facility] V28) LLQ pain BD BONE DENSITY [...] year. Mammography location: [facility] at [address], [address] -------- FINAL REPORT -------- Dictated By: Cedric Trevino Dictated Date: 12/20/2024 09:11 ET Assigned Physician: Cedric Trevino Reviewed and Electronically Signed By: Cedric Trevino Signed Date: 12/20/2024 09:16 ET Workstation ID: [id number] Transcribed By: Self Edit Transcribed Date: 12/20/2024 [...] None Computer-aided detection was employed with the [employer] 3-D. TISSUE DENSITY: There are scattered [...] None Computer-aided detection was employed with the [employer] 3-D. TISSUE DENSITY: There are [...] year. Mammography location: [facility] at [address], [address] -------- FINAL REPORT -------- Dictated By: Cedric Trevino Dictated Date: 12/20/2024 09:11 ET Assigned Physician: Cedric Trevino Reviewed and Electronically Signed By: Cedric Trevino Signed Date: 12/20/2024 09:16 ET Workstation ID: [id number] Transcribed By: Self Edit Transcribed Date: 12/20/2024 09:11 ET us Self Referral Sppl IMG BI PROCEDURES Final Resul t * (ABNORMAL) Lipid panel with reflex to direct LDL (12/06/2024 8:46 AM EDT) Cholesterol 184 0 - 200 mg/dL LAB CHEMISTRY METHOD 12/06/2024 4:12 PM EDT [facility] Triglycerides 72 0 - 150 mg/dL LAB CHEMISTRY METHOD 12/06/2024 4:12 PM EDT [facility] HDL 54 >=40 mg/dL LAB CHEMISTRY METHOD 12/06/2024 4:12 PM EDT [facility] LDL Calculated 116(H) 0 - 100 mg/dL LAB CHEMISTRY METHOD 12/06/2024 4:12 PM EDT [facility] Comment:Estimated LDL Calcul ated using equation: Total cholesterol - HDL cholesterol - (Triglycerides/5) VLDL Cholesterol [place] 14.4 mg/dL LAB CHEMISTRY METHOD 12/06/2024 4:12 PM EDT [facility] Non HDL Chol. (LDL+VLDL) 130 <145 mg/dL LAB CHEMISTRY METHOD 12/06/2024 4:12 PM EDT [facility] Chol/HDL Ratio 3.4 0.0 - 4.4 LAB CHEMISTRY METHOD 12/06/2024 4:12 PM EDT [facility] Blood Venous blood specimen / Unknown Venipuncture / Unknown 12/06/2024 8:46 AM EDT 12/06/2024 8:46 AM EDT Ed Waterman LAB BLOOD ORDERABLES Final Resul t [facility] [address] [place] [address], * (ABNORMAL) CBC auto differential (12/06/2024 8:46 AM EDT) WBC 4.5(L) 4.8 - 10.8 K/mcL LAB HEMETOLOGY METHOD 12/06/2024 11:35 AM EDT [facility] RBC 4.00 3.80 - 4.80 M/mcL LAB HEMETOLOGY METHOD 12/06/2024 11:35 AM EDT [facility] Hemoglobin 12.9 11.5 - 16.0 g/dL LAB HEMETOLOGY METHOD 12/06/2024 11:35 AM EDT [facility] Hematocrit 39.9 35.0 - 47.0 % LAB HEMETOLOGY METHOD 12/06/2024 11:35 AM EDT [facility] MCV 98.8(H) 79.0 - 98.0 FL LAB HEMETOLOGY METHOD 12/06/2024 11:35 AM EDT [facility] MCH 31.9 27.0 - 32.0 pcg LAB HEMETOLOGY METHOD 12/06/2024 11:35 AM EDT [facility] MCHC 32.3 32.0 - 37.0 g/dL LAB HEMETOLOGY METHOD 12/06/2024 11:35 AM EDT [facility] RDW 12.9 11.0 - 15.0 % LAB HEMETOLOGY METHOD 12/06/2024 11:35 AM EDT [facility] Platelets 221 130 - 400 K/mcL LAB HEMETOLOGY METHOD 12/06/2024 11:35 AM EDT [facility] MPV 11.7(H) 7.0 - 11.0 FL LAB HEMETOLOGY METHOD 12/06/2024 11:35 AM EDT [facility] NRBC 0.0 <1.0 % [...] LAB HEMETOLOGY METHOD 12/06/2024 11:35 AM EDT [facility] Immature Granulocytes Absolute 0.01 0.00 - 0.03 K/mcL LAB HEMETOLOGY METHOD 12/06/2024 11:35 AM EDT [facility] Blood Venous blood specimen / Unknown Venipuncture / Unknown 12/06/2024 8:46 AM EDT 12/06/2024 8:46 AM EDT Ed Marie LAB BLOOD ORDERABLES Final Resul t Performing Organization Address [facility] Co de Phone Number [facility] [address] [place] [address], [place] [phone] * Alanine aminotransferase (12/06/2024 8:46 AM EDT) ALT (SGPT) 28 10 - 60 unit/L LAB CHEMISTRY METHOD 12/06/2024 5:12 PM EDT [facility] Blood Venous blood specimen / Unknown Venipuncture / Unknown 12/06/2024 8:46 AM EDT 12/06/2024 8:46 AM EDT Ed MariekavinChatous LAB BLOOD ORDERABLES Final Resul t Performing Organization Address [facility]/ZIP Co de Phone Number [facility] [address] [place] [address], [place] [phone] * Aspartate aminotransferase (12/06/2024 8:46 AM EDT) AST (SGOT) 18 10 - 42 unit/L LAB CHEMISTRY METHOD 12/06/2024 4:09 PM EDT [facility] Blood Venous blood specimen / Unknown Venipuncture / Unknown 12/06/2024 8:46 AM EDT 12/06/2024 8:46 AM EDT Ed EcohausChatous LAB BLOOD ORDERABLES Final Resul t [facility] [address] [place] [address], [place] [phone] * Thyroid stimulating hormone (12/06/2024 8:46 AM EDT) [facility] TSH 3.33 0.40 - 4.00 mcIU/mL LAB CHEMISTRY METHOD 12/06/2024 6:09 PM EDT [facility] Blood Venous blood specimen / Unknown Venipuncture / Unknown 12/06/2024 8:46 AM EDT 12/06/2024 8:46 AM EDT Ed Waterman LAB BLOOD ORDERABLES Final Resul t Performing Organization Address [facility] de Phone Number [facility] [address] [place] [address], [place] [phone] * Hemoglobin A1c (12/06/2024 8:46 AM EDT) [facility] Hemoglobin A1C 5.6 <6.5 % LAB CHEMISTRY METHOD 12/06/2024 2:28 PM EDT [facility] Mean Bld Glu Estim. 114 mg/dL LAB CHEMISTRY METHOD 12/06/2024 2:28 PM EDT [facility] Blood Venous blood specimen / Unknown Venipuncture / Unknown 12/06/2024 8:46 AM EDT 12/06/2024 8:46 AM EDT Ed Waterman LAB BLOOD ORDERABLES Final Resul t Performing Organization Address [facility]/ZIP Co de Phone Number [facility] [address] [place] [address], [place] [phone] * BD Bone Density DXA Axial Skeleton [...] probability of hip fracture of 1.1%. Code 18842 -------- FINAL REPORT -------- Dictated By: Juan Eldridge Dictated Date: 03/23/2024 08:48 ET Assigned Physician: Juan Eldridge Reviewed and Electronically Signed By: Juan Eldridge Signed Date: 03/23/2024 08:53 ET Workstation ID: [id number] Transcribed By: Self Edit Transcribed Date: 03/23/2024 [...] density of the femurs bilaterally is 0.916 gm/[id number] is 91% of that of young normals [...] probability of hip fracture of 1.1%. Code 45266 -------- FINAL REPORT -------- Dictated By: Juan Eldridge Dictated Date: 03/23/2024 08:48 ET Assigned Physician: Juan Eldridge Reviewed and Electronically Signed By: Juan Eldridge Signed Date: 03/23/2024 08:53 ET Workstation ID: [id number] Transcribed By: Self Edit Transcribed Date: 03/23/2024 08:48 ET Jim Thomas DO [facility] DXA PROCEDURES Final Resu lt from Last 3 Months or Most Recently Relevant to Health Maintenance Insurance [employer] [place] MEDICARE ADVANTAGE Care Teams Farmworker Livestock Relationship Specialty Start Date End Date Jim Thomas DO [address] [place] [phone] PCP - General Internal Medicine 02/23/24
--- OUTSIDE RECORDS SUMMARY | 2025-01-29 00:46 | XMS_ITS | Encounter Summary ---
Author Organization [facility] Address [address] [place] [address] Phone Care Team Providers Care Ambulatory Analyst Name Role Phone Jim Thomas DO Primary Care Provider [phone] Encounter Details Date Type Department Care Team (Late st Contact Info) Description 02/21/2018 Procedure Pass [facility] [address] [place] [address] Social History Tobacco Use Types Packs/Day Years [...] on filedocumented in this encounter Care Teams Ambulatory Analyst Relationship Specialty Start Date End Date Jim Thomas DO [address] [place] [address] [address] [place] [address] PCP - General Internal Medicine 02/08/18 documented as of this encounter Additional Source Comments The information contained in this document represents components of the legal health record. It is not the complete legal health record.[facility]
--- OUTSIDE RECORDS SUMMARY | 2025-01-29 00:46 | XMS_ITS | Clinical Summary ---
Author Organization [facility] Address [address] [place] [phone] Phone Care Team Providers Care Cover Creaser Name Role Phone Jim Thomas DO Primary Care Provider Allergies Active Allergy Reactions Criticality Noted Date [...] [place] BLUE REPLACEMENT [facility] MEDICARE PPO BLUE REPLACEMENT [facility] MEDICARE PPO BLUE REPLACEMENT [facility] MEDICARE PPO [place]UE [place] [address] [place] [address] MEDICARE PPO BLUE REPLACEMENT [facility] MEDICARE PPO BLUE REPLACEMENT [facility] MEDICARE PPO BLUE REPLACEMENT [facility] MEDICARE PPO BLUE REPLACEMENT [facility] MEDICARE PPO BLUE REPLACEMENT [facility] Care Teams Cover Creaser Relationship Specialty Start Date End Date Jim Thomas DO [address] [place] [id number] PCP - General Internal Medicine 02/08/18 Additional Source Comments The information contained in this document represents components of the legal health record. It is not the complete legal health record.[facility]
--- OUTSIDE RECORDS SUMMARY | 2025-01-29 00:47 | XMS_ITS | Encounter Summary ---
Author Organization [facility] Address [address] [place] [address] Phone Care Team Providers Care Consumer Services Advisor Name Role Phone Jmi Thomas DO Primary Care Provider [phone] Encounter Details Date Type Department Care Team (Late st Contact Info) Description 02/21/2018 Procedure Pass [facility] [address] [place] [address] Social History Tobacco Use Types Packs/Day Years [...] on filedocumented in this encounter Care Teams Consumer Services Advisor Relationship Specialty Start Date End Date Jim Thomas DO [address] [place] [address] [address] [place] [address] PCP - General Internal Medicine 02/08/18 documented as of this encounter Additional Source Comments The information contained in this document represents components of the legal health record. It is not the complete legal health record.[facility]
== END 2025-01-28 12:12 | disposition home or self-care (01) ==
LOC: HO.10HDL 12:11
PROVIDERS: Visit Provider Internal Medicine Nephrology
DX: R80.9 Proteinuria, unspecified (principal)
CPT/HCPCS: 36415; 80051; 82565; 82570; 82784; 84156; 84520; 86334; 86335